=== PATIENT | female | born 1930 | race Caucasian/White ===

== ENCOUNTER 2017-09-07 12:09 | Inpatient (IN) ==
[2017-09-07] MEDS ORDERED: 0.9 % Sodium Chloride 500 ML IVC ONE (12:16)
--- NOTE | 2017-09-07 12:19 | Emergency Department Note ---
START Narrative - START START: I examined this patient and my medical decision-making was reviewed with the EYE SURGEON/PA/Advanced Practice Nurse/Resident Physician. I agree with the documented findings, disposition and treatment plan as described except to the extent set forth below. ED attending: Patient's emergency medicine resident Dr. Yehuda Elise. Please see copy of this note for H&P evaluation and management and ED disposition. We both had independent [id number] time in contact with this patient. Briefly: A 87-year-old female normally lives in [place] staying with family locally via EMS for increasing weakness and altered mental status over the past 24-48 hours. Physical examination shows the patient is a poor story but otherwise nonfocal cranial nerves appear to be intact there is no slurred speech dysphagia or dysphonia. Patient is afebrile with stable vital signs patient will get a workup for MENTAL STATUS. SCREENING LABS EKG NONCONTRAST HEAD CT AND CHEST X- RAY AND URINALYSIS. ADMISSION ANTICIPATED. DISPOSITION PENDING.
--- NOTE | 2017-09-07 12:32 | Emergency Department Note ---
Disposition Clinical Impression: Multifocal pneumonia, Elevated troponin, Dysarthria Disposition: Admitted As Inpatient Condition: Serious Weakness HPI - General Chief complaint: ED Weakness Stated complaint: weakness Time Seen by Provider: 09/07/17 12:15 Source: patient, EMS Mode of arrival: private vehicle Limitations: no limitations Nursing Notes Reviewed: Yes Vital Signs Reviewed: Yes - History of Present Illness HPI Narrative: 87-year-old female history of hypertension, hyperlipidemia, status post CABG who presents to the ER via EMS due to weakness. Reports that she has not felt well for several days. She was seen here on given IV fluids, labs and discharged home. Her current complaint is that she has had a cough for a few days and has been too weak to walk. Family at bedside reports that she has been sick since the of this month. They report generalized weakness with difficulty ambulating at home. They do state that overnight that she had unclosed herself and was speaking but not making sense. She woke up this morning mentating more appropriately. She denies any chest pain or shortness of breath. No numbness tingling or paresthesias. Pt Subjective Complaint: generalized weakness/fatigue Onset (ago): day(s) Duration: constant Location: generalized Migration: none Pain Severity: none Pain Scale: 0 Improves with: none Worsens with: none Associated symptoms: Reports: denies other symptoms - Related Data Home Medications Medication Instructions Recorded Confirmed Levothyroxine Sodium [Levoxyl] 50 mcg PO DAILY 09/07/17 09/07/17 Metoprolol XL (24 HR) Succ [Toprol 100 mg PO DAILY 09/07/17 09/07/17 XL] NIFEdipine [Nifedipine ER] 30 mg PO DAILY 09/07/17 09/07/17 Simvastatin [Zocor] 20 mg PO DAILY 09/07/17 09/07/17 Venlafaxine XR (24 HR) [Effexor Xr] 37.5 mg PO DAILY 09/07/17 09/07/17 Allergies Allergy/AdvReac Type Severity Reaction Status Date / Time No Known Allergies Allergy Verified 09/04/17 10:04 All systems ED: reviewed and negative except as stated. Constitutional: Denies: fever Cardiovascular: Denies: chest pain Respiratory: Reports: cough. Denies: dyspnea Gastrointestinal: Denies: abdominal pain, nausea, vomiting, diarrhea Neurological: Reports: weakness. Denies: headache, numbness, paresthesias Past Medical History - Past Medical History Attestation: Yes The following information was validated with the patient. Source: patient, obtained from family Medical history: Reports: coronary artery disease, hyperlipidemia Psychiatric history: Reports: no psych history - Social History Smoking Status: Never smoker Alcohol use: Reports: none Drug use: Reports: none Physical Exam - General Limitations: no limitations General appearance: alert, in no apparent distress - Head Head exam: atraumatic, normocephalic, normal inspection - Eye Eye exam: Present: normal appearance, PERRL, EOMI - ENT ENT exam: normal exam - Neck Neck exam: Present: normal inspection, full ROM - Chest Chest inspection: Present: normal inspection, symmetric chest wall rise - Respiratory Respiratory exam: Present: normal lung sounds bilaterally - Cardiovascular Cardiovascular exam: Present: regular rate, normal rhythm, normal heart sounds - Abdominal Exam Abdominal exam: Present: soft, Non-Tender. Absent: tenderness - Extremities Exam Extremities exam: Present: normal inspection, full ROM - Expanded Upper Extremity Exam Shoulder exam: Present: normal inspection, full ROM Arm exam: Present: normal inspection, full ROM Elbow exam: Present: normal inspection, full ROM Forearm/Wrist exam: Present: normal inspection, full ROM Hand exam: Present: normal inspection, full ROM Vascular exam: Normal: radial pulse - Expanded Lower Extremity Exam Hip/Pelvis exam: Present: normal inspection, full ROM Upper leg exam: Present: normal inspection, full ROM Knee exam: Present: normal inspection, full ROM Lower leg exam: Present: normal inspection, full ROM Ankle exam: Present: normal inspection, full ROM Foot/toe exam: Present: normal inspection, full ROM Neurovascular/Tendon exam: Absent: motor deficit, sensory deficit - Neurological Exam Neurological exam: Present: alert, oriented X3, CN II-XII intact. Absent: motor sensory deficit - Expanded Neurological Exam Speech: Present: fluid speech Cranial nerves: EOM function (II, III, IV, ): Normal, facial sensation (V): Normal, spinal accessory function (XI): Normal, tongue deviation (XII): Normal Motor strength - LUE: 4/5 Motor strength - RUE: 4/5 Motor strength - LLE: 4/5 Motor strength - RLE: 4/5 Sensory exam upper extremity: light touch: Normal Sensory exam lower extremity: light touch: Normal Coma Scale Eye Opening: Spontaneous Coma Scale Motor Response: Obeys Commands Coma Scale Verbal Response: Oriented Coma Scale Total: 15 - Psychiatric Psychiatric exam: Present: normal affect - Skin Skin exam: Present: warm, dry, intact Course Course Narrative: Patient seen and examined. Nonfocal exam here. We will obtain a CT scan of the head as well as EKG, chest x-ray and labs including troponin and urinalysis. 500 mL bolus ordered. - Reevaluation(s) Reevaluation #1: Patient reevaluated due to concern for speech difficulties. Upon reevaluation she is exhibiting some expressive aphasia and dysarthria. STEMI called at 12:26 due to elevations in leads 3 and aVF. We will discuss with interventionalists - Consultations Consultation #1: I spoke with Dr. Hemphill, the continuous miner operator helper interventionalist. Discussed the patient's history and exam and EKG. He reports he will be down to see the patient. Time: 12:30 Consultation #2: I spoke again with the dewaxer after communication with cardiology who interpreted her echo. Recommends to heparinize but does not plan on emergent catheterization at this time. Vital Signs Temperature 98 F 09/07/17 12:10 Pulse Rate 90 09/07/17 12:10 Respiratory Rate 22 09/07/17 12:10 Blood Pressure 135/80 09/07/17 12:10 O2 Sat by Pulse Oximetry 96 09/07/17 12:10 Temperature 98 F 09/07/17 12:10 Pulse Rate 90 09/07/17 14:55 Respiratory Rate 20 09/07/17 15:51 Blood Pressure 154/78 09/07/17 15:51 O2 Sat by Pulse Oximetry 98 09/07/17 14:55 Oxygen Delivery Oxygen Delivery Nasal Cannula Weakness - [facility] Narrative Medical decision making narrative: 87-year-old female presents to the ER due to generalized weakness for one week in duration. Upon arrival patient had nonfocal neurologic exam. During her ED stay she was noted to be dysarthric at times. Her EKG demonstrated ST elevations in leads 3 and aVF. Alert was called and interventional cardiology evaluated the patient at bedside in the emergency department. Patient was chest pain-free during all of this. No prior EKGs for comparison. Stat echocardiogram was ordered at the request of the busgirl. Patient's troponin noted to be 5. Chest x-ray demonstrates likely bilateral pneumonia. Patient given Rocephin and Zithromax. Patient admitted to the hospitalist service. - Lab Data Lab results reviewed: Yes I reviewed the patient's lab results. Result diagrams: 09/07/17 12:36 09/07/17 12:36 Lab Results 09/07/17 09/07/17 09/07/17 Range/Units 12:34 12:36 12:36 WBC 7.3 (4.3-11.1) K/mcL RBC 4.53 (3.82-4.97) M/mcL Hgb 12.7 (11.5-15.4) g/dL Hct 39.0 (35.3-44.9) % MCV 86.1 (83.0-100.0) fL MCH 28.0 (28.0-33.3) pg MCHC 32.6 (31.6-35.5) g/dL RDW 13.6 (11.5-14.5) % Plt Count 223 (140-400) K/mcL MPV 10.5 (9.4-12.4) fL Immature Gran % 0.7 (0-4) % Seg Neutrophils % 71.8 % Lymphocytes % 18.1 % Monocytes % 9.4 % Eosinophils % 0.0 % Basophils % 0.0 % Neutrophils # 5.3 (1.6-8.9) K/mcL Lymphocytes # 1.3 (0.6-4.6) K/mcL Monocytes # 0.7 (0.0-1.3) K/mcL Eosinophils # 0.0 (0.0-0.6) K/mcL Basophils # 0.0 (0.0-0.2) K/mcL PT 14.8 H (9.4-12.1) Seconds INR 1.4 APTT 31.7 (26.0-36.0) Seconds Sodium 143 (136-145) mEq/L Potassium 3.3 L (3.5-5.1) mEq/L Chloride 107 (98-107) mEq/L Carbon Dioxide 28 (23-29) mEq/L BUN 12 (8-23) mg/dL Creatinine 0.53 L (0.60-1.20) mg/dL Est GFR ( Amer) > 60 (> 60) Est GFR (Non-Af Amer) > 60 (> 60) BUN/Creatinine Ratio 23 (6-26) Glucose 118 H (70-105) mg/dL Calculated Osmolality 297 (280-300) Calcium 8.8 (8.6-10.3) mg/dL Total Bilirubin 1.2 H (0.3-1.0) mg/dL AST 52 H (13-39) Units/L ALT 25 (7-52) Units/L Alkaline Phosphatase 112 H (34-104) Units/L Troponin I (< 0.04) ng/mL Serum Total Protein 5.5 L (6.4-8.9) g/dL Albumin 3.4 L (3.5-5.7) g/dL Globulin 2.1 L (2.4-3.5) g/dL Albumin/Globulin Ratio 1.6 (1.1-2.2) TSH 3.098 (0.340-5.600) mcIU/mL Urine Color (Yellow) Urine Clarity (Clear) Urine pH (5.0-8.0) pH Units Ur Specific [place] (1.010-1.025) Urine Protein (Neg-Trace) mg/dL Urine Glucose (UA) (Normal) mg/dL Urine Ketones (Negative) mg/dL Urine Blood (Negative) Urine Nitrite (Negative) Urine Bilirubin (Negative) Urine Urobilinogen (Normal) mg/dL Ur Leukocyte Esterase (Negative) Urine Microscopic RBC (0-3) per hpf Urine Microscopic WBC (0-3) per hpf Ur Squamous Epith Cells (None-Few) per lpf Urine Bacteria (None-Few) per hpf Hyaline Casts (None-Few) per lpf Ur Culture Indicated? (NO) 09/07/17 09/07/17 Range/Units 12:36 15:02 WBC (4.3-11.1) K/mcL RBC (3.82-4.97) M/mcL Hgb (11.5-15.4) g/dL Hct (35.3-44.9) % MCV (83.0-100.0) fL MCH (28.0-33.3) pg MCHC (31.6-35.5) g/dL RDW (11.5-14.5) % Plt Count (140-400) K/mcL MPV (9.4-12.4) fL Immature Gran % (0-4) % Seg Neutrophils % % Lymphocytes % % Monocytes % % Eosinophils % % Basophils % % Neutrophils # (1.6-8.9) K/mcL Lymphocytes # (0.6-4.6) K/mcL Monocytes # (0.0-1.3) K/mcL Eosinophils # (0.0-0.6) K/mcL Basophils # (0.0-0.2) K/mcL PT (9.4-12.1) Seconds INR APTT (26.0-36.0) Seconds Sodium (136-145) mEq/L Potassium (3.5-5.1) mEq/L Chloride (98-107) mEq/L Carbon Dioxide (23-29) mEq/L BUN (8-23) mg/dL Creatinine (0.60-1.20) mg/dL Est GFR ( Amer) (> 60) Est GFR (Non-Af Amer) (> 60) BUN/Creatinine Ratio (6-26) Glucose (70-105) mg/dL Calculated Osmolality (280-300) Calcium (8.6-10.3) mg/dL Total Bilirubin (0.3-1.0) mg/dL AST (13-39) Units/L ALT (7-52) Units/L Alkaline Phosphatase (34-104) Units/L Troponin I 5.02 H* (< 0.04) ng/mL Serum Total Protein (6.4-8.9) g/dL Albumin (3.5-5.7) g/dL Globulin (2.4-3.5) g/dL Albumin/Globulin Ratio (1.1-2.2) TSH (0.340-5.600) mcIU/mL Urine Color Yellow (Yellow) Urine Clarity Clear (Clear) Urine pH 6.0 (5.0-8.0) pH Units Ur Specific [place] 1.012 (1.010-1.025) Urine Protein Negative (Neg-Trace) mg/dL Urine Glucose (UA) Normal (Normal) mg/dL Urine Ketones Trace H (Negative) mg/dL Urine Blood Trace H (Negative) Urine Nitrite Negative (Negative) Urine Bilirubin Negative (Negative) Urine Urobilinogen Normal (Normal) mg/dL Ur Leukocyte Esterase Negative (Negative) Urine Microscopic RBC 0-3 (0-3) per hpf Urine Microscopic WBC 0-3 (0-3) per hpf Ur Squamous Epith Cells Moderate H (None-Few) per lpf Urine Bacteria None Seen (None-Few) per hpf Hyaline Casts None Seen (None-Few) per lpf Ur Culture Indicated? NO (NO) - Radiology Data Radiology results reviewed: Yes I reviewed the patient's radiology results. Chest X-Ray 09/07/17 12:15 IMPRESSION: Worsened streaky airspace opacities to the lungs bilaterally, right more than left with lower lung zone predominance may reflect worsening atelectasis or multifocal infiltrates. Clinical correlation and continued follow-up recommended. D/ / 09/07/2017 12:42:47 Shoaib Rudd MD / [facility] Interpreting Provider: Shoaib Rudd MD Head CT 09/07/17 12:17 IMPRESSION: No acute intracranial abnormality. Age related changes including chronic small vessel ischemic disease and cerebral atrophy. D/ / 09/07/2017 13:40:41 Amirah Farooq MD / [facility] Interpreting Provider: Amirah Farooq MD - EKG Data EKG attestation: Yes I reviewed and interpreted this EKG. EKG results narrative: EKG demonstrates sinus rhythm with rate of 91 bpm. Normal axis. Normal intervals. Poor R-wave progression. There are ST elevations in leads 3 and aVF as well as ST depression in reciprocal changes in leads 1 and aVL. STEMI
[2017-09-07 12:51] LABS: Hemoglobin 12.7 g/dL (11.5-15.4); Immature Granulocytes % 0.7 % (0-4); Lymphocytes # 1.3 K/mcL (0.6-4.6); Lymphocytes % 18.1 %; Mean Corpuscular HGB Conc 32.6 g/dL (31.6-35.5); Mean Corpuscular Volume 86.1 fL (83.0-100.0); Mean Platelet Volume 10.5 fL (9.4-12.4); Monocytes # 0.7 K/mcL (0.0-1.3); Monocytes % 9.4 %; Neutrophils # 5.3 K/mcL (1.6-8.9); Platelet Count 223 K/mcL (140-400); Red Blood Count 4.53 M/mcL (3.82-4.97); Red Cell Distribution Width 13.6 % (11.5-14.5); Segmented Neutrophils % 71.8 %
[2017-09-07 12:58] LABS: INR 1.4; Prothrombin Time 14.8 Seconds (9.4-12.1)
[2017-09-07 13:02] LABS: Activated Partial Thrombo Time 31.7 Seconds (26.0-36.0)
[2017-09-07] MEDS ORDERED: *HR* Ticagrelor 90 MG TABLET PO ONE (13:02)
[2017-09-07] MEDS ORDERED: Aspirin 81 MG TAB.CHEW PO ONE (13:02)
[2017-09-07 13:03] LABS: Alanine Aminotransferase 25 Units/L (7-52); Albumin 3.4 g/dL (3.5-5.7); Albumin/Globulin Ratio 1.6 (1.1-2.2); Alkaline Phosphatase 112 Units/L (34-104); Aspartate Amino Transferase 52 Units/L (13-39); BUN/Creatinine Ratio 23 (6-26); Bilirubin,Total 1.2 mg/dL (0.3-1.0); Blood Urea Nitrogen 12 mg/dL (8-23); Calcium 8.8 mg/dL (8.6-10.3); Carbon Dioxide 28 mEq/L (23-29); Chloride 107 mEq/L (98-107); Globulin 2.1 g/dL (2.4-3.5); Glucose 118 mg/dL (70-105); Osmolality,Calculated 297 (280-300); Potassium 3.3 mEq/L (3.5-5.1); Sodium 143 mEq/L (136-145); Total Protein 5.5 g/dL (6.4-8.9); eGFR For African Americans > 60 (> 60); eGFR For Non-African Americans > 60 (> 60)
[2017-09-07 13:18] LABS: Thyroid Stimulating Hormone 3.098 mcIU/mL (0.340-5.600)
[2017-09-07] MEDS ORDERED: cefTRIAXone 1,000 MG in Water for inj. (sterile) 10 ML IVP ONE (13:57)
[2017-09-07] MEDS ORDERED: Azithromycin 500 MG in D5% in Water 250 ML IVPB ONE (13:57)
[2017-09-07] MEDS ORDERED: Ondansetron 4 MG/2 ML VIAL IVP ONE (14:33)
[2017-09-07] MEDS ORDERED: *HR* Heparin 5,000 UNIT/ML VIAL IVP ONE (14:58)
[2017-09-07] MEDS ORDERED: *HR* Heparin 5,000 UNIT/ML VIAL IVP PRN (14:58)
[2017-09-07] MEDS ORDERED: Heparin 25,000 UNIT/500 ML D5W 25,000 UNIT/500 ML BAG IVC SCH (15:00)
[2017-09-07 15:10] LABS: Bilirubin,Urine Negative (Negative); Blood,Urine Trace (Negative); Clarity,Urine Clear (Clear); Color,Urine Yellow (Yellow); Glucose,Urine (UA) Normal (Normal); Ketones,Urine Trace mg/dL (Negative); Leukocyte Esterase,Urine Negative (Negative); Nitrite,Urine Negative (Negative); Protein,Urine Negative (Neg-Trace); Specific Gravity,Urine 1.012 (1.010-1.025); Urobilinogen,Urine Normal (Normal)
[2017-09-07 15:12] LABS: Bacteria,Urine None Seen per hpf (None-Few); Hyaline Casts,Urine None Seen per lpf (None-Few); RBC,Urine 0-3 per hpf (0-3); Squamous Epithelial Cell,Urine Moderate per lpf (None-Few); WBC,Urine 0-3 per hpf (0-3)
[2017-09-07] MEDS ORDERED: *HR* Heparin 10,000 UNIT/10 ML VIAL ONE (15:26)
[2017-09-07] MEDS ORDERED: 0.9 % Sodium Chloride 1,000 ML ONE ×2 (15:26→16:04)
[2017-09-07] MEDS ORDERED: Nitroglycerin 1,000 MCG/10 ML VIAL IV ONE (15:27)
--- NOTE | 2017-09-07 15:34 | Pre-Sedation Evaluation ---
Pre-sedation evaluation - Pre-sedation checklist Date of procedure: 09/07/17 Procedure: [facility] Recent Vitals: Last Vital Signs Temp 98 F 09/07/17 12:10 Pulse 90 09/07/17 14:55 Resp 16 09/07/17 14:55 BP 129/84 09/07/17 14:55 Pulse Ox 98 09/07/17 14:55 H&P (including ROS) documented in medical record: Yes Previous reaction to sedatives/anesthetics: No Dietary Status: NPO after Midnight Airway Assessment: Patient can open mouth completely, TMJ function normal ASA Classification *see protocol: CLASS II-Mild systemic disease Plan of Care: Pt appropriate candidate for procedure/moderate/conscious sedation , Risks/benefits of procedure/sedation discussed w/ patient/family
[2017-09-07] MEDS ORDERED: HEPARIN INARTERIAL ONE (15:45)
[2017-09-07] MEDS ORDERED: D5 INARTERIAL ONE (15:45)
[2017-09-07] MEDS ORDERED: WATER INARTERIAL ONE (15:45)
[2017-09-07] MEDS ORDERED: *HR* FentaNYL (PF) 100 MCG/2 ML VIAL ONE (16:03)
[2017-09-07] MEDS ORDERED: *HR* Midazolam HCl 2 MG/2 ML VIAL ONE (16:03)
[2017-09-07] MEDS ORDERED: Ondansetron 4 MG/2 ML VIAL IVP PRN (16:26)
--- NOTE | 2017-09-07 16:33 | Internal Med History&Physical ---
Date of Encounter: 09/07/17 Time of Encounter: 16:32 Assessment and Plan (1) STEMI (ST elevation myocardial infarction) Current visit: Yes Status: Acute - troponin elevated, EKG inferior leads ST-T elevation. - Received Plavix and heparin gtt. - emergent cardiac cath. - cardiology following. - medical team will continue manage CV risk factors including HTN, and HLP and other medical issues. Qualifiers: Involved coronary artery: right coronary artery Qualified Code(s): I21.11 - ST elevation (STEMI) myocardial infarction involving right coronary artery (2) Pneumonia Current visit: Yes Status: Acute - CXR revealed bilateral PNA. - continue current abx with Rocephin and Zithromax. - Pending blood and sputum cx. Qualifiers: Pneumonia type: due to unspecified organism Laterality: bilateral Lung location: unspecified part of lung Qualified Code(s): J18.9 - Pneumonia, unspecified organism (3) Hypothyroidism Current visit: Yes Status: Chronic - will repeat TSH and continue home meds. Qualifiers: Hypothyroidism type: unspecified Qualified Code(s): E03.9 - Hypothyroidism , unspecified (4) HTN (hypertension) Current visit: No Status: Chronic - stable and continue home meds. Qualifiers: Hypertension type: essential hypertension Qualified Code(s): I10 - Essential (primary) hypertension (5) Hyperlipidemia Current visit: No Status: Chronic - On low dose statins, will check lipid profile and may need to increase to high -strength regimen if indicated. Qualifiers: Hyperlipidemia type: pure hypercholesterolemia Qualified Code(s): E78.00 - Pure hypercholesterolemia, unspecified; E78.0 - Pure hypercholesterolemia Internal Medicine - H&P: HPI Admitted From: Emergency Dept Plans for Post Hospital Care: Home History of present illness: Ms. Hollins is a 87 year old female with history of hypertension, hyperlipidemia, status post CABG who presents to the ER via EMS due to weakness. Reports that she has not felt well for several days. She was seen here on given IV fluids, labs and discharged home. Her current complaint is that she has had a cough for a few days and has been too weak to walk. Family at bedside reports that she has been sick since the of this month. They report generalized weakness with difficulty ambulating at home. They do state that overnight that she had unclosed herself and was speaking but not making sense. She woke up this morning mentating more appropriately. She denies any chest pain or shortness of breath. No numbness tingling or paresthesias. At the ED, she was found to have elevated troponin, a subsequent EKG revealed ST -T elevation in the inferior leads, cardiology was consult immediately, and decision was made to perform an acute left side heart catheter. She already received Plavix by mouth and was on heparin drip. Cardiology will manage cardiac issues and the hospitalist group will manage her medical issues. Past Med Surg Social Fam HX - Past Medical History Medical history: coronary artery disease, hyperlipidemia Psychiatric history: no psych history - Social History Smoking Status: Never smoker Alcohol use: none Drug use: none Internal Medicine - H&P: Meds Levothyroxine Sodium [Levoxyl] 50 mcg PO DAILY 09/07/17 [History] Metoprolol XL (24 HR) Succ [Toprol XL] 100 mg PO DAILY 09/07/17 [History] NIFEdipine [Nifedipine ER] 30 mg PO DAILY 09/07/17 [History] Simvastatin [Zocor] 20 mg PO DAILY 09/07/17 [History] Venlafaxine XR (24 HR) [Effexor Xr] 37.5 mg PO DAILY 09/07/17 [History] 3 Allergy/AdvReac Type Severity Reaction Status Date / Time No Known Allergies Allergy Verified 09/04/17 10:04 All Systems PM: A 10-system review of systems was performed and is negative for pertinent findings except as documented above in the HPI. Review of systems: REVIEW OF SYSTEMS: CONSTITUTIONAL: No weight loss, fever, chills, weakness or fatigue. HEENT: Eyes: No visual loss, blurred vision, double vision or yellow sclerae. Ears, Nose, Throat: No hearing loss, sneezing, congestion, runny nose or sore throat. SKIN: No rash or itching. CARDIOVASCULAR: see HPI. RESPIRATORY: see HPI. GASTROINTESTINAL: No anorexia, nausea, vomiting or diarrhea. No abdominal pain or blood. GENITOURINARY: No dysuria, urgency, or frequency. NEUROLOGICAL: No headache, dizziness, syncope, paralysis, ataxia, numbness or tingling in the extremities. No change in bowel or bladder control. MUSCULOSKELETAL: No muscle, back pain, joint pain or stiffness. HEMATOLOGIC: No anemia, bleeding or bruising. LYMPHATICS: No enlarged nodes. No history of splenectomy. PSYCHIATRIC: No history of depression or anxiety. ENDOCRINOLOGIC: No reports of sweating, cold or heat intolerance. No polyuria or polydipsia. - Constitutional Vitals: Temp Pulse Resp BP Pulse Ox 98 F 90 20 154/78 98 09/07/17 12:10 09/07/17 14:55 09/07/17 15:51 09/07/17 15:51 09/07/17 14:55 Exam: PHYSICAL EXAMINATION: GENERAL APPEARANCE: The patient is alert, oriented and in no acute distress. HEENT: Head is normocephalic. The sinuses are nontender. Pupils are equal and reactive. The nares are patent. Oropharynx clear without lesions. NECK: Supple without lymphadenopathy. HEART: Regular rate and rhythm. LUNGS: No crackles or wheezes are heard. ABDOMEN: Soft, nontender, nondistended with good bowel sounds heard. Inguinal area is normal. EXTREMITIES: Without cyanosis, clubbing or edema. NEUROLOGICAL: Gross nonfocal. SKIN: Warm and dry without any rash. Internal Med - H&P Results - Labs CBC & Chem 7: 09/07/17 12:36 09/07/17 12:36
[2017-09-07] MEDS ORDERED: Potassium Chloride Elixir 20 MEQ/15 ML UDC PO ONE (16:41)
--- NOTE | 2017-09-07 17:33 | Event Note ---
Date of Encounter: 09/07/17 Time of Encounter: 17:30 - Cardiology Event Note Prelim LHC/PTCA Patent SVG to OM/diagonal Y graft that backfills the LAD SHIELDS occluded RCA heavily calcified with mid 90% stenosis sp PTCA with noncompliant to 20atm with incomplete (30%) inflation mid balloon. Residual 80% stenosis. 100% distal RCA with ipsilateral collaterals. Distal lesion is heavily calcified with small subbranch. Suspect subtotal chronic occlusion. Unable to pass OTW 1.2 balloon or Fielder/PT wire distally. Patient asymptomatic and EF 45% by echo. Patient stable. Concluded procedure.
--- NOTE | 2017-09-07 17:50 | Invasive Diagnostic Lab Proc ---
Name: Mary Anne Hollins Date of Study: 09/07/2017 Date: 1930 Ht: 61.0in Medical Record#: [id number] Age: 87 Wt: 99.21lb Gender: Female BSA: 1.4 Order #: [id number] BMI: 18.73 Physicians Procedure Physician: Jamey Hemphill MD, [facility] Referring MD: None Referring MD: Staff Name Position Time In ZavalaAiden RN Monitor 03:57 PM Amirah Giron RN Outside Barrel Lathe Operator 03:58 PM Bibi Borden RT (R) Scrub 03:59 PM Anita Ruby RN Outside Barrel Lathe Operator 05:08 PM Indications Indication Non-Stemi Procedures Performed Procedure CORONARY ART/GRFT ANGIO S&I INJECT SUPRVLVAORTAGRAM PRQ CARDIAC ANGIOPLAST 1 ART Pre-Procedure Checklist Informed consent is complete signed and on chart. H&P is on chart. ID band is on and ID verified with patient. Pt not NPO for procedure and MD aware. The procedure was described for the patient and questions were answered. Blood Pressure: 129/84 ECG is on chart. Rhythm: NSR Plan of Care Patient will tolerate the procedure without complications. Adequate level of comfort will be maintained. Hemodynamics will remain stable Patient will recover from procedure without complications. Respiratory function will be maintained. Cardiac rhythm will remain stable. Patient temperature will be maintained. Patient and/or family have verbalized understanding of the procedure. Patient Education Chief Complaint/Reason for Test: Cardiac Cath Developmental Category: Geriatric (65+ years) Developmentally Appropriate for Age: Yes Learning Barriers: None Education Needs: Procedure Education Method: Verbal Information Taught: Cardiac Cath Educational Evaluation: Able to repeat information Intravenous Access Time IV Size Location DC'd Fluid/Drip Rate Units RN 03:41 PM 20g 1 1/4" Patent On Arrival Lt Antecubital 0.9NaCl 25 ml/hr Amirah Giron RN 03:41 PM 20g 1 1/4" Patent On Arrival Rt Antecubital Amirah Giron RN Allergies No Known Allergies Vital Signs Time BP (mmHg) HR (bpm) O2 Sat. RR (bpm) LOC 03:42 PM 129 / 84 90 98 % 16 3 = Answers simple questions/follows commands 03:58 PM / % 3 = Answers simple questions/follows commands 03:58 PM / % 3 = Answers simple questions/follows commands 04:13 PM / % 3 = Answers simple questions/follows commands 04:28 PM / % 3 = Answers simple questions/follows commands 04:44 PM / % 3 = Answers simple questions/follows commands 04:59 PM / % 3 = Answers simple questions/follows commands 04:04 PM 136 / 91 105 100 % 16 04:09 PM 135 / 95 103 100 % 39 04:14 PM 127 / 84 98 100 % 32 04:19 PM 133 / 86 102 100 % 20 04:24 PM 122 / 75 90 99 % 24 04:29 PM 121 / 74 91 98 % 28 04:34 PM 120 / 75 91 99 % 35 04:39 PM 120 / 70 90 96 % 29 04:44 PM 111 / 64 87 96 % 29 04:49 PM 107 / 71 86 98 % 28 04:54 PM 114 / 65 87 99 % 23 04:59 PM 110 / 68 87 99 % 26 05:04 PM 113 / 67 89 98 % 18 05:09 PM 106 / 69 90 100 % 25 05:14 PM 118 / 77 92 100 % 30 05:19 PM 116 / 74 91 100 % 15 05:25 PM 117 / 77 91 100 % 18 05:14 PM / % 3 = Answers simple questions/follows commands Procedural Medications Time Medication Dose Units Method Given By 04:18 PM Versed 1 mg Intravenous Amirah Giron RN 04:18 PM Fentanyl 25 mcg Intravenous Amirah Giron RN 04:19 PM Lidocaine 2% 20 ml Subcutaneous Jamey Hemphill MD, FACC 04:40 PM Heparin 4000 units Intravenous Amirah Giron RN ASA Classification: CLASS II- Mild systemic disease (i.e. well-controlled diabetes, hypertension, asthma, cigarette smoking) Elan Score Preprocedure Postprocedure Activity 2- Moves 4 extremities sustained head lift Activity 2- Moves 4 extremities sustained head lift Circulation 2- SBP +/= 20 points of pre-anesthetic level Circulation 2- SBP +/= 20 points of pre-anesthetic level Consciousness 2- Awake and alert oriented x 3 Consciousness 2- Awake and alert oriented x 3 O2 Saturation 2- Able to maintain O2 satruation of 92% on room air O2 Saturation 2- Able to maintain O2 satruation of 92% on room air Respiratory 2- Able to deep breathe and cough well Respiratory 2- Able to deep breathe and cough well Total Score 10 Total Score 10 Contrast Agent: Isovue Diagnostic Contrast: 151 ml Total Contrast: 151 ml Fluoro Dose: 1236 mGy Activated Clotting Time Time Seconds to Clot 05:19 PM 280 Procedure Log Time Note Enter By 03:37 PM CathStat 03:57 PM Pt arrived to [facility] at 15:57, pt pleasantly confused upon arrival to [facility], daughter signed consent for patient csmith 03:57 PM Aiden Zavala RN Position: Monitor Time in: 15:57 csmith 03:57 PM Patient charges- Angio tray pack, Navilyst 3mm J, Pulse Oximetry and ACIST tubing and transducer csmith 03:58 PM Sign in performed according to hospital policy. csmith 03:58 PM Meet and greet completed csmith 03:58 PM Procedure start 15:58 csmith 03:58 PM Time: 15:58 Patient comfortable and pain free: Yes csmith 03:58 PM Time: 15:58LOC: 5 = Fully awake and oriented or at pre-proc level csmith 03:58 PM Case Start 03:59 PM Amirah Giron RN Position: Outside Barrel Lathe Operator Time in: 15:58 csmith 03:59 PM Bibi Borden RT (R) Position: Scrub Time in: 15:59 csmith 04:00 PM ASA Class CLASS II- Mild systemic disease (i.e. well-controlled diabetes, hypertension, asthma, cigarette smoking) csmith 04:00 PM Hair removed from procedure site in procedure lab using clippers. Bilateral groin prepped with Chloraprep by Esme Armstrong RT (R), safety strap applied then patient was draped. Skin intact. csmith 04:02 PM Vitals capture started with the following parameters, Patient=Adult, Interval=5 min, Initial Ziltsbhz=754 mmHg, Deflation Rate=5 mmHg, Cuff placed on Left Arm 04:03 PM Vitals capture started with the following parameters, Patient=Adult, Interval=5 min, Initial Tvkawaov=304 mmHg, Deflation Rate=5 mmHg, Cuff placed on Left Arm 04:[address]=016 bpm, ANOA=107/91 mmhg, SvX6=246.0 %, Resp=16 B/min 04:05 PM Recorded ECG: UD=980 Condition=Condition 1 04:09 PM QT=618 bpm, ADWE=435/95 mmhg, DkB1=730.0 %, Resp=39 B/min, Comment=ST 04:13 PM Time: 15:58LOC: 4 = Oriented but drowsy csmith 04:13 PM Time: 15:58 Patient comfortable and pain free: Yes csmith 04:14 PM HR=98 bpm, UHDP=530/84 mmhg, JoL8=607.0 %, Resp=32 B/min 04:16 PM Time out performed according to hospital policy csmith 04:18 PM Time: 16:18 Versed 1 mg Intravenous Given by Amirah Giron RN csmith 04:18 PM Time: 16:18 Fentanyl 25 mcg Intravenous Given by Amirah Giron RN csmith 04:19 PM AV=829 bpm, CNUH=684/86 mmhg, AlX9=235.0 %, Resp=20 B/min 04:19 PM Time: 16:19 20 ml Lidocaine 2% to right groin Subcutaneous Given by Jamey Hemphill MD, [facility] csmith 04:20 PM Access obtained by percutaneous puncture. 5Fr 10cm Terumo [place] sheath placed in right Femoral artery. [id number] csmith 04:21 PM 5Fr FR 4 catheter inserted over the wire [facility] 04:21 PM 0.035 145cm Navilyst 3mmJ wire [id number] csmith 04:21 PM Pressure channel 1 zeroed. 04:22 PM Recorded Pressure: Ao, HR=95, Condition=Condition 1 (Aorta) Ao 120/78/96 04:22 PM RCA angiography performed in multiple views. csmith 04:22 PM Lesion found in Mid RCA. Pre Stenosis: 95 Pre ELYSSA Flow: 2. csmith 04:23 PM Coronary Dominance: right csmith 04:23 PM Lesion found in Distal RCA. Pre Stenosis: 100 Pre ELYSSA Flow: 0: No Flow/No perfusion csmith 04:24 PM SVG to the 1st OM angio performed in multiple views. csmith 04:24 PM HR=90 bpm, MCBA=355/75 mmhg, SpO2=99.0 %, Resp=24 B/min 04:25 PM Catheter removed csmith 04:25 PM 5Fr IM catheter inserted over the wire [id number] csmith 04:27 PM Left FLORY to the LAD angio performed in TIERNEY. csmith 04:28 PM Catheter removed csmith 04:28 PM 5Fr FL 4 catheter inserted over the wire [facility] 04:28 PM Time: 16:13 Patient comfortable and pain free: Yes csmith 04:28 PM Time: 16:13LOC: 3 = Answers simple questions/follows commands csmith 04:29 PM HR=91 bpm, WBHB=359/74 mmhg, SpO2=98.0 %, Resp=28 B/min 04:29 PM LCA angiography performed in one view. csmith 04:30 PM Catheter removed csmith 04:31 PM Recorded Pressure: Ao, HR=92, Condition=Condition 1 (Aorta) Ao 124/66/90 04:31 PM Bolus angiogram of Aortic root complete: 10 ml/sec for a total of 25 mls csmith 04:32 PM Catheter removed csmith 04:33 PM 5Fr JL3.5 catheter inserted over the wire [id number] csmith 04:34 PM HR=91 bpm, NMYD=793/75 mmhg, SpO2=99.0 %, Resp=35 B/min 04:34 PM LCA angiography performed in multiple views. csmith 04:35 PM Lesion found in Mid LAD. Pre Stenosis: 100 Pre ELYSSA Flow: 0: No Flow/No perfusion csmith 04:35 PM Catheter removed csmith 04:35 PM 5Fr MPA catheter inserted over the wire [id number] csmith 04:37 PM Catheter removed csmith 04:38 PM Sheath exchanged for a 6 Fr 11 cm Cordis Flor sheath [id number] csmith 04:39 PM HR=90 bpm, CJRS=234/70 mmhg, SpO2=96.0 %, Resp=29 B/min 04:39 PM Inflation device was opened. csmith 04:40 PM Time: 16:40 Heparin 4000 units Intravenous Given by Amirah Giron RN csmith 04:40 PM 6Fr JR 4 Runway guide catheter was used to cannulate the PCI vessel successfully. reused? No csmith 04:42 PM .014 [place] 180cm guide wire across target lesion- successful. reused? No csmith 04:42 PM Bed requested, 2N 8 assigned csmith 04:43 PM Time: 16:28 Patient comfortable and pain free: Yes csmith 04:44 PM Time: 16:28LOC: 3 = Answers simple questions/follows commands csmith 04:44 PM HR=87 bpm, PATK=421/64 mmhg, SpO2=96.0 %, Resp=29 B/min 04:48 PM Guide wire removed intact. csmith 04:49 PM HR=86 bpm, ZZZE=052/71 mmhg, SpO2=98.0 %, Resp=28 B/min 04:51 PM .014 [place] XT 300cm guide wire across target lesion- successful. reused? No csmith 04:51 PM 1.2 mm x 15 mm Emerge overthewire balloon across target lesion- successful. reused? No csmith 04:54 PM HR=87 bpm, MZIQ=186/65 mmhg, SpO2=99.0 %, Resp=23 B/min 04:56 PM Balloon catheter removed intact. csmith 04:56 PM Guide catheter removed intact. csmith 04:56 PM Guide wire removed intact. csmith 04:58 PM 6Fr MPA Runway guide catheter was used to cannulate the PCI vessel successfully. reused? No csmith 04:58 PM 1.2*15 balloon and wire reinserted csmith 04:59 PM HR=87 bpm, AEAV=744/68 mmhg, SpO2=99.0 %, Resp=26 B/min 04:59 PM Time: 16:44LOC: 3 = Answers simple questions/follows commands csmith 04:59 PM Time: 16:43 Patient comfortable and pain free: Yes csmith 05:02 PM Guide wire removed intact. csmith 05:02 PM balloon catheter removed intact csmith 05:04 PM HR=89 bpm, MLMM=782/67 mmhg, SpO2=98.0 %, Resp=18 B/min 05:06 PM .014 PT Graphix 300cm guide wire across target lesion- successful. reused? No csmith 05:07 PM 1.2 * 15 balloon reinserted csmith 05:08 PM Anita Ruby RN Position: Outside Barrel Lathe Operator Time in: 17:08 to relieve Amirah Giron RN csmith 05:08 PM balloon and wire removed csmith 05:08 PM marvel 180cm wire reinserted csmith 05:09 PM HR=90 bpm, DPZT=926/69 mmhg, ZvU7=270.0 %, Resp=25 B/min 05:09 PM 2.25 mm x 12 mm Emerge Monorail balloon across target lesion- successful. reused? No csmith 05:11 PM Balloon inflated @ 14 kamari for 30 seconds csmith 05:11 PM Balloon catheter removed intact. csmith 05:13 PM 2.5 mm x 8mm NC Emerge balloon across target lesion- successful. reused? No csmith 05:14 PM HR=92 bpm, TXAN=747/77 mmhg, WqU9=547.0 %, Resp=30 B/min 05:14 PM Time: 16:59 Patient comfortable and pain free: Yes csmith 05:14 PM Time: 16:59LOC: 3 = Answers simple questions/follows commands csmith 05:15 PM Balloon inflated @ 12 kamari for 18 seconds csmith 05:15 PM Balloon inflated @ 20 kamari for 29 seconds csmith 05:17 PM Patient comfortable, no chest pain with balloon inflation csmith 05:18 PM wire, guide and balloon catheter removed intact csmith 05:19 PM HR=91 bpm, NESD=336/74 mmhg, UlM1=833.0 %, Resp=15 B/min 05:19 PM JR4 diagnostic catheter reinserted, single view of SVG to 1st OM/Diag taken csmith 05:19 PM At 17:19 the ACT was 280 seconds. csmith 05:21 PM catheter removed csmith 05:25 PM HR=91 bpm, AAFS=425/77 mmhg, TwB8=037.0 %, Resp=18 B/min 05:27 PM Lesion found in 1st Marginal. Pre Stenosis: 100 Pre ELYSSA Flow: 0: No Flow/No perfusion csmith 05:28 PM Procedure completed at 17:28 csmith 05:29 PM Sign out completed: Radiation Dose 1236 mGy Fluoro Time: 22.7 Isovue 370 - 200ml contrast 151 ml given by Jamey Hemphill MD, [facility]. Complications: NoneCardiac Rehab Consult needed: YesConfirmed administered medications: Yes csmith 05:29 PM Isovue 370 - 200ml,1 Bottle(s) used. csmith 05:29 PM Sheath left in place to be pulled on floor/holding areaV+Pad csmith 05:30 PM Time: 17:14LOC: 3 = Answers simple questions/follows commands csmith 05:30 PM Time: 17:14 Patient comfortable and pain free: Yes csmith 05:30 PM Estimated Blood Loss: less than 20cc csmith 05:30 PM Post ECG NSR csmith 05:30 PM Post Blood Pressure 117/77 csmith 05:30 PM Information taught PCI csmith 05:30 PM Education needs Responsibilities of Patient in Care csmith 05:30 PM Learning barriers :Cognitive and Sedated csmith 05:30 PM Education Methods Verbal csmith 05:30 PM Education evaluation Not ready to learn csmith 05:30 PM Site status No bleeding/hematoma - Rt Groin as reported by Bibi Borden RT (R) at 17:30 csmith 05:31 PM Plavix, Effient or Brilinta given No - given in ED csmith 05:31 PM Family placed in consult room. csmith 05:44 PM Report given to Jose GUIDRY Pt taken to 2N Room #8. 17:44 csmith Complications Complication None Hemodynamics Pressures Site Systolic/A Wave Diastolic/V Wave Mean AO 120 78 96 AO 124 66 90 Post Procedure Information Blood Pressure: 117/77 mmHg Rhythm: NSR Post procedural instructions were given Site Checks Time Location Status Staff Sheath In? Note 05:30 PM Rt Groin No bleeding/hematoma Bibi Borden RT (R) Pulses Updated by Aiden Zavala RN on 09/07/2017 5:44:30 PM electronically signed on 09/07/2017 5:45:17 PM with status of Final
[2017-09-07] MEDS ORDERED: *HR* Atropine Sulfate 1 MG/10 ML SYRINGE ONE (20:16)
[2017-09-07] MEDS: *HR* Ticagrelor 90 MG TABLET PO SCH (21:35)
--- NOTE | 2017-09-07 21:52 | Cardiology History & Physical ---
Date of Encounter: 09/08/17 Time of Encounter: 15:00 Assessment and Plan (1) NSTEMI (non-ST elevated myocardial infarction) Current Visit: Yes Status: Acute A/R/B of [facility] discussed with patient and family including 1% chance of MT// CVA/CABG/EMILIANO/bleeding. Patient and daughter are aware and wish to proceed. EF assessment has been completed. The assessment and plan as outlined above was discussed with the patient and/or family members who expressed understanding and agreement. All questions were answered. (2) Aortic stenosis, severe Current Visit: Yes Status: Acute Will need referral for TAVR. The assessment and plan as outlined above was discussed with the patient and/or family members who expressed understanding and agreement. All questions were answered. (3) Multifocal pneumonia Current Visit: Yes Status: Acute The assessment and plan as outlined above was discussed with the patient and/or family members who expressed understanding and agreement. All questions were answered. (4) Dysphasia Current Visit: Yes Status: Acute CT Head was negative for acute changes. The assessment and plan as outlined above was discussed with the patient and/or family members who expressed understanding and agreement. All questions were answered. (5) Pneumonia Current Visit: Yes Status: Acute Continue antibiotics per primary team. The assessment and plan as outlined above was discussed with the patient and/or family members who expressed understanding and agreement. All questions were answered. Qualifiers: Pneumonia type: due to unspecified organism Laterality: bilateral Lung location: unspecified part of lung Qualified Code(s): J18.9 - Pneumonia, unspecified organism History of Present Illness Chief complaint: fever, chills, fatigue HPI: Ms. Hollins is a 87 year old female with history of CAD sp CABG at [facility], [facility], presents with fatigue, malaise, intermittent difficulty speaking and garbled speech. She was recently in ED and was negative for influenza due to URI symptoms. She denies chest/jaw/arm discomfort. Secondary to garbled speech/difficulty speaking, CT head was obtained to assess for ICH or CVA. Subsequent CXR shows multifocal pneumonia. Troponin resulted positive at 5. Past Med Surg Social Fam HX - Past Medical History Medical history: coronary artery disease, hyperlipidemia Psychiatric history: no psych history - Social History Smoking Status: Never smoker Alcohol use: none Drug use: none Medications and Allergies Levothyroxine Sodium [Levoxyl] 50 mcg PO DAILY 09/07/17 [History] Metoprolol XL (24 HR) Succ [Toprol XL] 100 mg PO DAILY 09/07/17 [History] NIFEdipine [Nifedipine ER] 30 mg PO DAILY 09/07/17 [History] Simvastatin [Zocor] 20 mg PO DAILY 09/07/17 [History] Venlafaxine XR (24 HR) [Effexor Xr] 37.5 mg PO DAILY 09/07/17 [History] 3 Allergy/AdvReac Type Severity Reaction Status Date / Time No Known Allergies Allergy Verified 09/04/17 10:04 All Systems Review: A 10-system review of systems was performed and is negative for pertinent findings except as documented above in the HPI. - Constitutional Constitutional: chills, fever(s) - EENT Eyes: no blurred vision, no loss of vision Nose, mouth and throat: no bleeding gums, no epistaxis - Cardiovascular Cardiovascular: no chest pain at rest, no chest pain with exertion - Respiratory Respiratory: no hemoptysis, no wheezing - Gastrointestinal Gastrointestinal: no hematemesis, no hematochezia - Genitourinary Genitourinary: no dysuria, no hematuria - Musculoskeletal Musculoskeletal: no muscle cramps, no muscle weakness - Integumentary Integumentary: no rash, no unusual bruising - Neurological Neurological: abnormal speech, no focal weakness, no syncope - Psychiatric Psychiatric: no hallucinations, no panic attacks - Hematological/Lymphatic Hematologic/Lymphatic: no easy bleeding, no easy bruising Physical Examination Vital Signs, Last 4 Hours Temp Pulse Pulse Resp BP Pulse Ox 09/07/17 20:49 104 20 134/98 100 09/07/17 20:44 102 20 134/98 09/07/17 20:40 105 20 134/82 96 09/07/17 20:36 104 136/89 09/07/17 20:33 104 146/93 09/07/17 20:29 103 131/101 09/07/17 19:22 98.2 F 91 18 130/79 98 09/07/17 18:45 89 125/87 09/07/17 18:30 116/82 95 09/07/17 18:15 89 107/73 09/07/17 17:53 98.3 F 88 81 18 114/86 94 General: Conversant HEENT: Atraumatic Neck: No JVD Cardiac: Reg Rate and Rhythm, Other (3/6 systolic murmur) Lungs: Normal Breath Sounds Neuro: Alert and responsive Abdomen: Soft Skin: No rashes noted on visualized skin Musculoskeletal: No Chest Wall Tenderness Extremities: No Edema Results 09/08/17 05:25 09/08/17 05:25 - Imaging and Cardiology Echo: report reviewed, other (EF 45% severe aortic stenosis) - EKG Interpretation EKG results cardiology: personally reviewed, sinus rhythm (inferior changes concerning for current of injury)
[2017-09-08 05:58] LABS: Basophils % 0.1 %; Hemoglobin 11.5 g/dL (11.5-15.4); Immature Granulocytes % 1.1 % (0-4); Lymphocytes # 1.1 K/mcL (0.6-4.6); Lymphocytes % 13.1 %; Mean Corpuscular HGB Conc 31.9 g/dL (31.6-35.5); Mean Corpuscular Volume 87.8 fL (83.0-100.0); Mean Platelet Volume 10.8 fL (9.4-12.4); Monocytes % 11.3 %; Neutrophils # 6.4 K/mcL (1.6-8.9); Platelet Count 266 K/mcL (140-400); Red Cell Distribution Width 13.8 % (11.5-14.5); Segmented Neutrophils % 74.4 %
[2017-09-08 06:08] LABS: BUN/Creatinine Ratio 19 (6-26); Blood Urea Nitrogen 11 mg/dL (8-23); Calcium 8.6 mg/dL (8.6-10.3); Carbon Dioxide 21 mEq/L (23-29); Chloride 112 mEq/L (98-107); Glucose 146 mg/dL (70-105); Osmolality,Calculated 300 (280-300); Potassium 3.2 mEq/L (3.5-5.1); Sodium 144 mEq/L (136-145); eGFR For African Americans > 60 (> 60); eGFR For Non-African Americans > 60 (> 60)
--- NOTE | 2017-09-08 06:43 | Electrocardiograph Report ---
[facility] Test Date: 2017-09-07 Pat Name: Mary Anne Hollins Department: 103 Room: 2N08 Gender: F Math Professor: : 1930 Requested By: Yehuda Elise Order Number: [id number] Reading MD: Noah Johnson MD Measurements Intervals [place]ar Rate: 91 P: -17 MN: 151 QRS: 12 QRSD: 114 T: -22 QT: 433 QTc: 481 Interpretive Statements SINUS RHYTHM INFERIOR MYOCARDIAL INFARCTION PROBABLY RECENT ACUTE [place] Electronically Signed On 09-08-2017 6:41:24 EST by Noah Johnson MD
[2017-09-08] MEDS: *HR* Heparin 5,000 UNIT/ML VIAL IVP PRN ×2 (08:42→15:53)
[2017-09-08] MEDS: *HR* Ticagrelor 90 MG TABLET PO SCH ×2 (08:43→21:18)
[2017-09-08] MEDS: NIFEdipine XL (24 HR) 30 MG TAB.ER.24 PO SCH (08:51)
--- NOTE | 2017-09-08 08:57 | Cardiology Progress Note ---
<Jhonatan Velazquez - Last Filed: 09/08/17 11:21> Date of Encounter: 09/08/17 Time of Encounter: 08:45 Assessment and Plan (1) STEMI (ST elevation myocardial infarction) Current Visit: Yes Status: Acute Presented with fatigue; laboratory examination revealed elevated troponin of 5.02; EKG demonstrated STEMI, inferior infarction Patient was taken for cardiac catheterization. Per cardiology note: Patent SVG to OM/diagonal Y graft that backfills the LAD SHIELDS occluded. RCA heavily calcified with mid 90% stenosis sp PTCA with noncompliant to 20atm with incomplete (30%) inflation mid balloon. Residual 80 % stenosis. 100% distal RCA with ipsilateral collaterals. Distal lesion is heavily calcified with small subbranch. Suspect subtotal chronic occlusion. Unable to pass OTW 1.2 balloon or Fielder/PT wire distally. Patient asymptomatic and EF 45% by echo. Patient tolerated procedure well. Plan: -Lipitor 80 mg PO HS -Metoprolol 100 mg PO daily -Nifedipine XL 30 mg PO daily -Brilinta 90 mg PO BID -Zocor 20 mg PO QPM -Currently on heparin drip -Cardiac Diet -Continuous cardiac monitoring Qualifiers: Qualified Code(s): I21.3 - ST elevation (STEMI) myocardial infarction of unspecified site (2) Aortic stenosis, severe Current Visit: Yes Status: Acute Patient has aortic stenosis on physical examination. -Possible referral for TAVR; procedure was explained to patient; will make a decision at a later time. -Condition stable to time. ECHO on 09/07/17 demonstrated the following: -LVEF 45%. -Mild reduction in LV systolic function with possible abnormal inferoseptal wall motion. -Moderate concentric left ventricular hypertrophy. -Diastolic dysfunction with elevated filling pressures. -Severely calcified and restricted aortic valve leaflets with severe aortic stenosis. JULIETA 0.6cm2 -Moderate mitral regurgitation. Discussion w patient/family: The assessment and plan as outlined above was discussed with the patient and/or family members who expressed understanding and agreement. All questions were answered. Thank you for involving us in the care of your patient. Please call with any questions. Subjective Interval history: Patient seen and examined at bedside this morning. Repors that she is feeling well today. No comlaints at this time. Objective Vital Signs, Last 4 Hours Temp Pulse Resp BP 09/08/17 08:35 97.8 F 103 14 104/70 12/29/17 05:00 111 126/76 General: Conversant, No Apparent Distress HEENT: Atraumatic, Normocephaly, Mucus Membranes Moist Neck: No JVD, Normal carotid pulses Cardiac: Reg Rate and Rhythm, Normal S1 and S2 Lungs: Normal Breath Sounds, No Wheeze, Rales, Rhonchi Neuro: Alert and responsive, No focal deficits noted Skin: No rashes noted on visualized skin Musculoskeletal: No Chest Wall Tenderness Extremities: No Clubbing, No Cyanosis, No Edema, Normal Pulses Results 09/08/17 10:19 09/08/17 05:25 Lab Results 09/08/17 09/08/17 09/08/17 05:25 05:25 05:25 WBC 8.6 Hgb 11.5 Hct 36.0 Plt Count 266 APTT 41.9 H Sodium 144 Potassium 3.2 L Chloride 112 H Carbon Dioxide 21 L BUN 11 Creatinine 0.57 L Glucose 146 H Calcium 8.6 Consult Discharge Plan - Plan Referrals: NONE,PCP [Primary Care Provider] - <Geo Tobias - Last Filed: 09/08/17 15:39> Date of Encounter: 09/08/17 Assessment and Plan Discussion w patient/family: The assessment and plan as outlined above was discussed with the patient and/or family members who expressed understanding and agreement. All questions were answered. Thank you for involving us in the care of your patient. Please call with any questions. Objective Vital Signs, Last 4 Hours Temp Pulse Resp BP Pulse Ox 09/08/17 11:30 97.9 F 98 14 94/61 96 Results 09/08/17 10:19 09/08/17 05:25 Lab Results 09/08/17 09/08/17 09/08/17 05:25 05:25 05:25 WBC 8.6 Hgb 11.5 Hct 36.0 Plt Count 266 APTT 41.9 H Sodium 144 Potassium 3.2 L Chloride 112 H Carbon Dioxide 21 L BUN 11 Creatinine 0.57 L Glucose 146 H Calcium 8.6 09/08/17 10:19 WBC Hgb 11.9 Hct 36.2 Plt Count APTT Sodium Potassium Chloride Carbon Dioxide BUN Creatinine Glucose Calcium - Attending Attestation I examined this patient and my medical decision-making was reviewed with the Resident Physician. I agree with the documented findings, disposition and treatment plan as described except to the extent set forth below. 1. Aortic stenosis: Critical with JULIETA .6 cm2, heavily calcified trileaflet valve. Long conversation with pt and family, risk vs. benefits TAVR compared to medical tx. She has had progressively worsening HORTON, now unable to walk 10 feet without having to stop due to shortness of breath. Daughter at bedside reports she noted [place] Anne slowing down and having to rest more around Thanksgiving , but did not become acutely short of breath until before [place]. Pt and family request proceed with TAVR evaluation, discussed transfer to [place], are willing to go to [facility] for further evaluation. They understand this is for evaluation, and that pneumonic process will have to clear before could proceed with TAVR, Discussed transfer with SOUND physician at [facility], have call out to structural heart team, (Dr. Deondre Gaytan) 2. CAD - severe triple vessel dx, unsuccessful PCI RCA, unable to dilate lesion in mid third, distal RCA, mid LAD, SHIELDS chronically occluded, SVG to OM1 and D1 patent. Continue medical tx.
[2017-09-08] MEDS ORDERED: Metoprolol XL (24 HR) Succ 50 MG TAB.ER.24H PO SCH ×2 (09:00→11:00)
[2017-09-08] MEDS ORDERED: Potassium Chloride Elixir 20 MEQ/15 ML UDC PO ONE ×2 (10:17→13:30)
[2017-09-08 10:27] LABS: Hematocrit 36.2 % (35.3-44.9); Hemoglobin 11.9 g/dL (11.5-15.4)
--- NOTE | 2017-09-08 10:46 | Internal Med Progress Note ---
<Sydney Dominguez - Last Filed: 09/08/17 13:21> Date of Encounter: 09/08/17 Time of Encounter: 10:44 - Assessment and plan (1) STEMI (ST elevation myocardial infarction) Current Visit: Yes Status: Acute Assessment and plan: [facility] 09/07 s/p PCI to midRCA currently on heparin gtt ASA and Brilinta; will need dual anticoagulation for 1 year Qualifiers: Involved coronary artery: right coronary artery Qualified Code(s): I21.11 - ST elevation (STEMI) myocardial infarction involving right coronary artery (2) Pneumonia Current Visit: Yes Status: Acute Assessment and plan: On Rocephin and azithromycin. Supplemental O2 as needed Qualifiers: Pneumonia type: due to unspecified organism Laterality: bilateral Lung location: unspecified part of lung Qualified Code(s): J18.9 - Pneumonia, unspecified organism (3) Hypokalemia Current Visit: Yes Status: Acute Assessment and plan: Replete Continue to monitor (4) Aortic stenosis, severe Current Visit: Yes Status: Acute Assessment and plan: Management by cardiology; possible referral for TAVR (5) CAD (coronary artery disease) Current Visit: Yes Status: Acute Assessment and plan: ASA 81 mg Lipior 80 mg Toprol XL 50 mg Nifedipine 30 mg Brilinta 90 mg BID echo 09/07: LVEF 45%. Mild reduction in LV systolic function with possible abnormal inferior septal wall motion. Moderate concentrate left ventricular hypertrophy. Diastolic dysfunction with elevated filling pressures. Normal right ventricular structure and function. Severely calcified and restricted aortic valve leaflets with severe aortic stenosis. JULIETA 0.6 cm2. Right mitral regurgitation. No pulmonary hypertension. Qualifiers: Coronary Disease-Associated Artery/Lesion type: unspecified vessel or lesion type [place] vs. transplanted heart: [place] heart Associated angina: without angina Qualified Code(s): I25.10 - Atherosclerotic heart disease of [place] coronary artery without angina pectoris (6) HTN (hypertension) Current Visit: No Status: Chronic Assessment and plan: Chronic, stable Continue metoprolol 50 mg, nifedipine 30 mg Qualifiers: Hypertension type: essential hypertension Qualified Code(s): I10 - Essential (primary) hypertension (7) Hyperlipidemia Current Visit: No Status: Chronic Assessment and plan: Simvastatin changed to Lipitor 80 mg due to recent STEMI with PCI Qualifiers: Hyperlipidemia type: pure hypercholesterolemia Qualified Code(s): E78.00 - Pure hypercholesterolemia, unspecified; E78.0 - Pure hypercholesterolemia (8) Hypothyroidism Current Visit: Yes Status: Chronic Assessment and plan: Chronic, stable Continue home medication levothyroxine 25 g Qualifiers: Hypothyroidism type: unspecified Qualified Code(s): E03.9 - Hypothyroidism , unspecified - Subjective Interval history: Patient lying in bed. She states that she felt weak after trying to eat breakfast. She did not have an appetite. She denies shortness of breath although she is using 2 L supplemental oxygen via nasal cannula and does not use oxygen at home. - Constitutional Vitals: Temp Pulse Resp BP Pulse Ox 97.8 F 103 14 104/70 95 09/08/17 08:35 09/08/17 08:35 09/08/17 08:35 09/08/17 08:35 09/08/17 03:16 General appearance: Present: A&O X 3, answers questions appropriately - Head Head exam: Present: atraumatic, normocephalic - Eye Eye exam: Present: PERRL, conjuntiva pink, sclera anicteric Pupils: Present: PERRL - Neck Neck exam general surgery: Present: supple, trachea midline - Respiratory Respiratory exam: Present: CTAB. Absent: accessory muscle use, rales, rhonchi, wheezes - Cardiovascular Cardiovascular exam: Present: RRR, +S1, +S2. Absent: diastolic murmur, gallop, rubs, systolic murmur - GI/Abdominal GI/Abdominal exam: Present: normal bowel sounds, soft, no peritoneal signs. Absent: distended, tenderness - Extremities Exam Extremities exam: Present: warm. Absent: pedal edema, tenderness Additional comments: Posterior tibial pulses palpable and symmetric - Neurological Exam Neurological exam: Present: CN II-XII intact, oriented X3, no focal deficits. Absent: pronater drift, facial droop, speech deficit - Skin Skin exam: Present: dry, intact Internal Medicine: Result - Labs CBC & Chem 7: 09/08/17 10:19 09/08/17 05:25 Labs: Short CBC 09/08/17 09/08/17 Range/Units 05:25 10:19 WBC 8.6 (4.3-11.1) K/mcL Hgb 11.5 11.9 (11.5-15.4) g/dL Hct 36.0 36.2 (35.3-44.9) % Plt Count 266 (140-400) K/mcL Neutrophils # 6.4 (1.6-8.9) K/mcL [facility] 09/08/17 05:25 Sodium 144 Potassium 3.2 L Chloride 112 H Carbon Dioxide 21 L BUN 11 Creatinine 0.57 L Glucose 146 H Calcium 8.6 - ABG Interpretation ABG results: PT/INR, D-dimer PT 14.8 Seconds (9.4-12.1) H 09/07/17 12:34 - Impressions Impressions Chest X-Ray 09/08/17 08:54 IMPRESSION: Focal left lower lobe airspace consolidation worsened since prior examination suggesting pneumonia. Recommend follow-up to resolution. D/ / Humberto Schwartz MD / Humberto Schwartz MD Interpreting Provider: Humberto Shcwartz MD Consult Discharge Plan - Plan Referrals: NONE,PCP [Primary Care Provider] - <Alvin Castillo - Last Filed: 09/08/17 18:14> Date of Encounter: 09/08/17 - Constitutional Vitals: Temp Pulse Resp BP Pulse Ox 97.7 F 98 14 98/62 98 09/08/17 16:40 09/08/17 16:40 09/08/17 16:40 09/08/17 16:40 09/08/17 16:40 Internal Medicine: Result - Labs CBC & Chem 7: 09/08/17 10:19 09/08/17 05:25 Labs: Short CBC 09/08/17 09/08/17 Range/Units 05:25 10:19 WBC 8.6 (4.3-11.1) K/mcL Hgb 11.5 11.9 (11.5-15.4) g/dL Hct 36.0 36.2 (35.3-44.9) % Plt Count 266 (140-400) K/mcL Neutrophils # 6.4 (1.6-8.9) K/mcL [facility] 09/08/17 05:25 Sodium 144 Potassium 3.2 L Chloride 112 H Carbon Dioxide 21 L BUN 11 Creatinine 0.57 L Glucose 146 H Calcium 8.6 - ABG Interpretation ABG results: PT/INR, D-dimer PT 14.8 Seconds (9.4-12.1) H 09/07/17 12:34 - Impressions Impressions Chest X-Ray 09/08/17 08:54 IMPRESSION: Focal left lower lobe airspace consolidation worsened since prior examination suggesting pneumonia. Recommend follow-up to resolution. D/ / Humberto Schwartz MD / Humberto Schwartz MD Interpreting Provider: Humberto Schwartz MD - Attending Attestation I examined this patient and my medical decision-making was reviewed with the Resident Physician on 09/08/17. I agree with the documented findings, disposition and treatment plan as described except to the extent set forth below. Please see discharge summary of this date.
[2017-09-08] MEDS ORDERED: Azithromycin 500 MG in D5% in Water 250 ML IVPB SCH (14:00)
--- NOTE | 2017-09-08 15:59 | Event Note ---
<Sydney Dominguez - Last Filed: 09/08/17 15:57> Date of Encounter: 09/08/17 Time of Encounter: 15:57 Called to patient's room by nurse. "Family states patient started speech is getting worse, with neuro exam left hand grasp is weaker and there is left leg drift." On my exam, patient had intermittent slurred speech. She had no arm or leg drift. Her motor strength was 5 out of 5 upper and lower extremities bilaterally. She did have a minor left-sided facial droop that resolved while I was in the room. MRI head will be ordered for dysarthria, left-sided weakness. <Alvin Castillo - Last Filed: 09/08/17 18:12> Date of Encounter: 09/08/17 Agree with above plan. Pt resolved at this time. To be transferred to [place] per cardiology service.
[2017-09-08] MEDS ORDERED: *HR* LORazepam 2 MG/ML VIAL IVP ONE (16:26)
[2017-09-08] MEDS: cefTRIAXone 1,000 MG in Water for inj. (sterile) 10 ML IVP SCH (18:03)
--- NOTE | 2017-09-08 18:18 | Discharge Summary ---
Date of Encounter: 09/08/17 Time of Encounter: 18:15 - Discharge Diagnosis (1) STEMI (ST elevation myocardial infarction) Priority: Primary Status: Acute Qualifiers: Involved coronary artery: right coronary artery Qualified Code(s): I21.11 - ST elevation (STEMI) myocardial infarction involving right coronary artery (2) Aortic stenosis, severe Priority: Primary Status: Acute (3) CAD (coronary artery disease) Priority: Secondary Status: Chronic Qualifiers: Coronary Disease-Associated Artery/Lesion type: three affiliated artery [place] vs. transplanted heart: [place] heart Associated angina: without angina Qualified Code(s): I25.10 - Atherosclerotic heart disease of [place] coronary artery without angina pectoris (4) Multifocal pneumonia Priority: Secondary Status: Acute (5) Dehydration Priority: Secondary Status: Acute (6) HTN (hypertension) Priority: Secondary Status: Chronic Qualifiers: Hypertension type: essential hypertension Qualified Code(s): I10 - Essential (primary) hypertension (7) Dysarthria Priority: Secondary Status: Chronic - Discharge Medications Home Medications: Levothyroxine Sodium [Levoxyl] 25 mcg PO DAILY 09/07/17 [History] Metoprolol XL (24 HR) Succ [Toprol Xl] 50 mg PO DAILY 09/07/17 [History] NIFEdipine [Nifedipine ER] 30 mg PO DAILY 09/07/17 [History] Venlafaxine XR (24 HR) [Effexor Xr] 37.5 mg PO DAILY 09/07/17 [History] Acetaminophen [Tylenol] 500 mg PO Q6HR PRN tablet 09/08/17 [Rx] Aspirin [Lo-Dose Aspirin EC] 81 mg PO DAILY 09/08/17 [History] Atorvastatin [Lipitor] 80 mg PO HS tablet 09/08/17 [Rx] Heparin 1,400 unit IVP Q6H PRN vial 09/08/17 [Rx] Heparin 2,700 unit IVP Q6HR PRN vial 09/08/17 [Rx] Ondansetron [Zofran] 4 mg IVP Q8HR PRN vial 09/08/17 [Rx] Ticagrelor [Brilinta] 90 mg PO BID tablet 09/08/17 [Rx] Allergies/Adverse Reactions: 3 Allergy/AdvReac Type Severity Reaction Status Date / Time No Known Allergies Allergy Verified 09/04/17 10:04 Procedures/tests Complete & Pending: Procedures Performed prior 72 hours Category Date Time Status MR head/brain wo con [MR] Stat MRI 09/08/17 15:55 Ordered Date of admission: 09/07/17 16:45 Primary care physician: PCP NONE Consults: 09/07/17 18:04 Consult to Pastoral Services [CONS] Routine Comment: Consult to Cigar Inspector [CONS] Routine Reason for SW Consult: discharge planning. 09/08/17 13:19 Consult to Occupational Therapy [CONS] Routine Comment: Evaluate, develop and implement POC Reason for Consult: weakness; discharge planning Consult to Physical Therapy [CONS] Routine Comment: Evaluate, develop and implement POC Reason for Consult: weakness; discharge planning Discharging clinician: Alvin Castillo Anticipated date of discharge: 09/08/17 - Patient Status Disposition: Transfer Short-Term Hosp Condition: Fair Functional capacity at discharge: independent ambulation Overall status at discharge: patient is progressing back to baseline - Discharge Instructions Follow Up With: NONE,PCP [Primary Care Provider] - - Diet and Activity Activity: increase activity as tolerated Diet: low fat, low cholesterol, low salt diet Hospital course: Ms. Hollins is a 87 year old female presented to ED with weakness. She was found to have elevated troponin and EKG showing STEMI. She was taken directly to laboratory tester. Ms Hollins was taken to laboratory tester. She had PTCA with incomplete inflation of balloon. She was also found to have severe aortic stenosis. She was continued on heparin drip. Due to severe aortic stenosis she was referred for TAVR. She is to be transferred to [place]. Of note she had episodes of slurred speech and L side weakness. MRI ordered. She also is noted to have bilateral pneumonia and is on IV abx. - Time Spent with Patient Total time spent providing and/or coordinating discharge services: - Constitutional Vitals: Temp Pulse Resp BP Pulse Ox 97.7 F 98 14 98/62 98 09/08/17 16:40 09/08/17 16:40 09/08/17 16:40 09/08/17 16:40 09/08/17 16:40 General appearance: Present: A&O X 3, answers questions appropriately - Head Head exam: Present: normocephalic - Eye Eye exam: Present: EOMI, conjuntiva pink - ENT ENT exam: Present: mucous membranes moist - Respiratory Respiratory exam: Present: decreased breath sounds. Absent: rales, rhonchi - Cardiovascular Cardiovascular exam: Present: RRR, systolic murmur - GI/Abdominal GI/Abdominal exam: Present: soft. Absent: tenderness - Extremities Exam Extremities exam: Present: warm. Absent: tenderness - Neurological Exam Neurological exam: Present: alert, oriented X3. Absent: facial droop
--- NOTE | 2017-09-08 19:22 | Electrocardiograph Report ---
[address] [address] Test Date: 2017-09-08 Pat Name: Mary Anne Hollins Department: 110 Room: 2N2 Gender: F Key Account Executive: VLADIMIR : 1930 Requested By: Carlos Snyder Order Number: [id number] Reading MD: Jamey Hemphill MD Measurements Intervals [place] Rate: 113 P: -15 FL: 128 QRS: 65 QRSD: 100 T: -29 QT: 360 QTc: 427 Interpretive Statements SINUS TACHYCARDIA Electronically Signed On 09-08-2017 19:21:17 EST by Jamey Hemphill MD
[2017-09-08] MEDS: Venlafaxine XR (24 HR) 37.5 MG CAP.ER.24H PO SCH (20:36)
[2017-09-09 02:26] LABS: BUN/Creatinine Ratio 22 (6-26); Blood Urea Nitrogen 13 mg/dL (8-23); Calcium 8.5 mg/dL (8.6-10.3); Carbon Dioxide 26 mEq/L (23-29); Chloride 110 mEq/L (98-107); Glucose 143 mg/dL (70-105); Osmolality,Calculated 299 (280-300); Potassium 3.3 mEq/L (3.5-5.1); Sodium 143 mEq/L (136-145); eGFR For African Americans > 60 (> 60); eGFR For Non-African Americans > 60 (> 60)
[2017-09-09] MEDS: cefTRIAXone 1,000 MG in Water for inj. (sterile) 10 ML IVP SCH (08:50)
[2017-09-09 10:57] VITALS: BP 139/81
[2017-09-09] MEDS: Venlafaxine XR (24 HR) 37.5 MG CAP.ER.24H PO SCH (15:21)
[2017-09-09] MEDS: *HR* Ticagrelor 90 MG TABLET PO SCH (15:21)
[2017-09-09] MEDS: NIFEdipine XL (24 HR) 30 MG TAB.ER.24 PO SCH (15:21)
--- NOTE | 2017-09-09 17:35 | Event Note ---
Date of Encounter: 09/09/17 Time of Encounter: 13:00 Ms Hollins has been admitted with acute STEMI and found to have severe aortic stenosis. 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 This AM she feels OK. She was to be transferred to [facility] last evening for evaluation for TVAR but family declined. Today after discussion they have agreed to go to [facility]. Exam Alert. Comfortable Mucus membranes dry Heart reg No edema I/P 1. STEMI 2. Bilateral CVAs 3. Severe aortic stenosis Plan d/c to [facility] today.
== END 2017-09-09 18:00 | disposition other institution (70) | DRG 250 ==
LOC: EMEROO 12:09 → 2ANU 12:09 → 2NNU 16:43 → SUATTDRO 16:45 → 2NENU 09-08 07:55
PROVIDERS: ADMIT Internal Medicine Nephrology; ATTEND Internal Medicine

== ENCOUNTER 2017-10-16 10:30 | Inpatient (IN) ==
--- NOTE | 2017-10-16 10:44 | Emergency Department Note ---
Disposition Clinical Impression: NSTEMI (non-ST elevated myocardial infarction), Elevated brain natriuretic peptide (BNP) level Dyspnea Qualifiers: Dyspnea type: dyspnea on exertion Qualified Code(s): R06.09 - Other forms of dyspnea Disposition: Admitted As Inpatient Condition: Fair Time of Disposition: 13:04 General Adult HPI - General Chief complaint: ED Shortness of Breath/Dyspnea Stated complaint: JAYLENE Time Seen by Provider: 10/16/17 10:36 Source: patient, EMS Mode of arrival: EMS Limitations: no limitations Nursing Notes Reviewed: Yes Vital Signs Reviewed: Yes - History of Present Illness HPI Narrative: Patient is an 87 year female presents to emergency department via EMS from assisted living facility. She states that she has had shortness of breath for a long time however over the past 2-3 days this is significantly gotten worse. She states that her shortness of breath is worse with exertion. Patient denies any chest pain at this time. Patient denies use of inhalers or nebulizer treatments at home. Patient denies any other symptoms or pain at this time. - Related Data Home Medications Medication Instructions Recorded Confirmed Levothyroxine Sodium [Levoxyl] 25 mcg PO DAILY 09/07/17 10/16/17 Metoprolol XL (24 HR) Succ [Toprol 50 mg PO DAILY 09/07/17 10/16/17 Xl] Venlafaxine XR (24 HR) [Effexor Xr] 37.5 mg PO DAILY 09/07/17 10/16/17 Aspirin [Lo-Dose Aspirin EC] 81 mg PO DAILY 09/08/17 10/16/17 Atorvastatin [Lipitor] 40 mg PO HS 10/16/17 10/16/17 Buspirone HCl [Buspar] 10 mg PO TID PRN 10/16/17 10/16/17 Dronabinol [Marinol] 2.5 mg PO BID 10/16/17 10/16/17 Lutein 10 mg PO DAILY 10/16/17 10/16/17 Nitroglycerin [Nitrostat] 0.4 mg SL Q5M PRN 10/16/17 10/16/17 Ondansetron HCl [Zofran] 2 mg PO Q6H PRN 10/16/17 10/16/17 Previous Rx's Medication Instructions Recorded Acetaminophen [Tylenol] 500 mg PO Q6HR PRN tablet 09/08/17 Ticagrelor [Brilinta] 90 mg PO BID tablet 09/08/17 Allergies Allergy/AdvReac Type Severity Reaction Status Date / Time No Known Allergies Allergy Verified 09/04/17 10:04 All systems ED: reviewed and negative except as stated. Cardiovascular: Denies: chest pain Respiratory: Reports: dyspnea Past Medical History - Past Medical History Medical history: Reports: coronary artery disease, hyperlipidemia Psychiatric history: Reports: no psych history - Social History Smoking Status: Never smoker Alcohol use: Reports: none Drug use: Reports: none Physical Exam - General Limitations: no limitations General appearance: alert, in no apparent distress - Head Head exam: atraumatic, normocephalic - Eye Eye exam: Present: normal appearance, EOMI - Neck Neck exam: Present: normal inspection, full ROM, trachea midline - Respiratory Respiratory exam: Present: normal lung sounds bilaterally. Absent: respiratory distress, wheezes - Cardiovascular Cardiovascular exam: Present: regular rate, normal rhythm, normal heart sounds, +S1, +S2 - Abdominal Exam Abdominal exam: Present: soft, Non-Tender, normal bowel sounds - Neurological Exam Neurological exam: Present: alert, oriented X3 - Psychiatric Psychiatric exam: Present: normal affect, normal mood - Skin Skin exam: Present: warm, dry, intact Course Vital Signs Temperature 97.4 F L 10/16/17 10:33 Pulse Rate 88 10/16/17 10:33 Respiratory Rate 20 10/16/17 10:33 Blood Pressure 136/88 10/16/17 10:33 O2 Sat by Pulse Oximetry 97 10/16/17 10:33 Temperature 97.4 F L 10/16/17 10:33 Pulse Rate 85 10/16/17 11:52 Respiratory Rate 20 10/16/17 11:52 Blood Pressure 124/84 10/16/17 11:52 O2 Sat by Pulse Oximetry 97 10/16/17 11:52 Oxygen Delivery Oxygen Delivery Room Air Medical Decision Making - MDM Narrative Medical decision making narrative: The patient presented with shortness of breath will obtain a CBC, BMP, BNP, troponin, chest x-ray and EKG. The patient sounded clear on exam and did not appear to be short of breath at this time. We will obtain laboratory testing and we will ambulate the patient patient and elevated troponin of 0.11 and a BNP greater than 5000. Her EKG showed a sinus rhythm with nonspecific T-wave changes. We called and spoke with Dr. Hemphill diamond powder mixer and he recommended that we start the patient on heparin and have the patient admitted to the hospital. We were in agreement with this and have started the patient on heparin and will admit the patient to the medical service with a cardiology consult. Chest x-ray showed tiny pleural effusions. The patient and family have been informed of the findings. I called and spoke with the hospitalist and they have accepted the patient to their service. The patient will be admitted to the hospital at this time. - Medical Records Medical records reviewed: Yes I reviewed the patient's medical records. - Lab Data Lab results reviewed: Yes I reviewed the patient's lab results. Result diagrams: 10/16/17 12:52 10/16/17 10:51 Lab Results 10/16/17 10/16/17 10/16/17 Range/Units 10:51 10:51 10:51 WBC 8.8 (4.3-11.1) K/mcL RBC 4.24 (3.82-4.97) M/mcL Hgb 11.5 (11.5-15.4) g/dL Hct 37.9 (35.3-44.9) % MCV 89.4 (83.0-100.0) fL MCH 27.1 L (28.0-33.3) pg MCHC 30.3 L (31.6-35.5) g/dL RDW 16.4 H (11.5-14.5) % Plt Count 296 (140-400) K/mcL MPV 10.8 (9.4-12.4) fL Immature Gran % 0.3 (0-4) % Seg Neutrophils % 82.6 % Lymphocytes % 9.8 % Monocytes % 7.3 % Eosinophils % 0.0 % Basophils % 0.0 % Neutrophils # 7.3 (1.6-8.9) K/mcL Lymphocytes # 0.9 (0.6-4.6) K/mcL Monocytes # 0.6 (0.0-1.3) K/mcL Eosinophils # 0.0 (0.0-0.6) K/mcL Basophils # 0.0 (0.0-0.2) K/mcL PT (9.4-12.1) Seconds INR APTT (26.0-36.0) Seconds Sodium 142 (136-145) mEq/L Potassium 4.0 (3.5-5.1) mEq/L Chloride 109 H (98-107) mEq/L Carbon Dioxide 23 (23-29) mEq/L BUN 26 H (8-23) mg/dL Creatinine 0.70 (0.60-1.20) mg/dL Est GFR ( Amer) > 60 (> 60) Est GFR (Non-Af Amer) > 60 (> 60) BUN/Creatinine Ratio 37 H (6-26) Glucose 141 H (70-105) mg/dL Calculated Osmolality 301 H (280-300) Lactic Acid 3.6 H (0.5-2.2) mmol/L Calcium 9.5 (8.6-10.3) mg/dL Troponin I (< 0.04) ng/mL B-Natriuretic Peptide (Less than 100) pg/mL 10/16/17 10/16/17 10/16/17 Range/Units 10:51 10:51 12:52 WBC (4.3-11.1) K/mcL RBC (3.82-4.97) M/mcL Hgb (11.5-15.4) g/dL Hct (35.3-44.9) % MCV (83.0-100.0) fL MCH (28.0-33.3) pg MCHC (31.6-35.5) g/dL RDW (11.5-14.5) % Plt Count (140-400) K/mcL MPV (9.4-12.4) fL Immature Gran % (0-4) % Seg Neutrophils % % Lymphocytes % % Monocytes % % Eosinophils % % Basophils % % Neutrophils # (1.6-8.9) K/mcL Lymphocytes # (0.6-4.6) K/mcL Monocytes # (0.0-1.3) K/mcL Eosinophils # (0.0-0.6) K/mcL Basophils # (0.0-0.2) K/mcL PT (9.4-12.1) Seconds INR APTT (26.0-36.0) Seconds Sodium (136-145) mEq/L Potassium (3.5-5.1) mEq/L Chloride (98-107) mEq/L Carbon Dioxide (23-29) mEq/L BUN (8-23) mg/dL Creatinine (0.60-1.20) mg/dL Est GFR ( Amer) (> 60) Est GFR (Non-Af Amer) (> 60) BUN/Creatinine Ratio (6-26) Glucose (70-105) mg/dL Calculated Osmolality (280-300) Lactic Acid 3.4 H (0.5-2.2) mmol/L Calcium (8.6-10.3) mg/dL Troponin I 0.11 H* (< 0.04) ng/mL B-Natriuretic Peptide > 5000 H (Less than 100) pg/mL 10/16/17 10/16/17 Range/Units 12:52 12:52 WBC 7.5 (4.3-11.1) K/mcL RBC 4.01 (3.82-4.97) M/mcL Hgb 11.0 L (11.5-15.4) g/dL Hct 36.3 (35.3-44.9) % MCV 90.5 (83.0-100.0) fL MCH 27.4 L (28.0-33.3) pg MCHC 30.3 L (31.6-35.5) g/dL RDW 16.1 H (11.5-14.5) % Plt Count 237 (140-400) K/mcL MPV 10.7 (9.4-12.4) fL Immature Gran % (0-4) % Seg Neutrophils % % Lymphocytes % % Monocytes % % Eosinophils % % Basophils % % Neutrophils # (1.6-8.9) K/mcL Lymphocytes # (0.6-4.6) K/mcL Monocytes # (0.0-1.3) K/mcL Eosinophils # (0.0-0.6) K/mcL Basophils # (0.0-0.2) K/mcL PT 12.4 H (9.4-12.1) Seconds INR 1.1 APTT 28.8 (26.0-36.0) Seconds Sodium (136-145) mEq/L Potassium (3.5-5.1) mEq/L Chloride (98-107) mEq/L Carbon Dioxide (23-29) mEq/L BUN (8-23) mg/dL Creatinine (0.60-1.20) mg/dL Est GFR ( Amer) (> 60) Est GFR (Non-Af Amer) (> 60) BUN/Creatinine Ratio (6-26) Glucose (70-105) mg/dL Calculated Osmolality (280-300) Lactic Acid (0.5-2.2) mmol/L Calcium (8.6-10.3) mg/dL Troponin I (< 0.04) ng/mL B-Natriuretic Peptide (Less than 100) pg/mL - Radiology Data Radiology results reviewed: Yes I reviewed the patient's radiology results. - EKG Data EKG #1 EKG attestation: Yes I reviewed and interpreted this EKG. EKG results narrative: EKG showed a sinus rhythm at a rate of 96 bpm, NJ interval of 150, QRS duration of 102, QTC of 436 with a normal axis. There are some nonspecific T-wave changes in the lateral leads. This is compared to previous EKG on 09/08/17. At this time there is some elevations in lead 3. EKG at that time showed a sinus tachycardia at a rate of 113. Critical Care Time Critical Care Time: Yes Total Critical Care Time: 40 Attestation: Critical care performed: Time is exclusive of separately billable procedures. Time includes: direct patient care, patient reassessment, coordination of patient care, interpretation of data (laboratory data, radiology data, and respiratory data), review of patient's medical records, medical consultation and documentation of patient care. Procedures included in critical care time: Procedures excluded from critical care time: Attestation Statement - Attestation Attestation: I, Sen Doshi DO, examined this patient [id number] and my medical decision-making was reviewed with Dr. Jong Dozier, Resident Physician. I agree with the documented findings, disposition and treatment plan as described except to the extent set forth below. Please see my progress notes for details. 87-year-old female presents emergency room by EMS for evaluation of shortness of breath. She was just discharged from the hospital patient has been a resident of a assisted living facility since being discharged home from the hospital. Patient is currently denying any chest pain. She does have heaviness to her chest. She does not have any acute signs of fluid overload. Her lungs are clear no coarse crackles or wheezing noted. Heart is regular. No murmurs are auscultated at this time. Abdomen is soft nontender nondistended no pulsatile lesions or mass. Patient does not have any pitting edema in lower extremities. She is alert, oriented, speaking in full sentences. She answers questions appropriately. She moves all 4 extremities with purpose. Patient is concerning for potential fluid overload were versus exacerbation of her chronic cardiac related illness. Chart review is completed showing catheterization performed on 09/07/17. The catheterization did show an ejection fraction of 45% with multivessel disease and right-sided heart failure. Patient is concerning for progression this illness at this time. Symptomatic treatment will be established. We will continue to monitor his treatment course is completed. Consultation placed onto the on-call diamond powder mixer further recommendations and intervention. Patient will be admitted for definitive management and evaluation. See detailed documentation of physical exam, medical intervention, medical decision-making and disposition and the resident physician's note. 40 minutes of critical care applied to this patient secondary to starting a heparin drip at the request of the diamond powder mixer. Patient does not have any acute signs of widened mediastinum her hemoglobin is normal. Coags were added on. Urinalysis also had a nondilated or any hematuria. Patient denies any hematochezia or melena. Disposition will be admission for further management and treatment course. 1300 Patient to be started on heparin at the request of the diamond powder mixer. No active bleeding noted per the patient. Correlation studies were ordered. Vital signs remained stable. Hospitals contacted for admission. Approximately 40 minutes of critical care applied to this patient. Admission process to be completed this time for further evaluation of elevated troponin and BNP. Patient family fontanelle comfortable with this plan.
[2017-10-16 11:03] LABS: Hematocrit 37.9 % (35.3-44.9); Hemoglobin 11.5 g/dL (11.5-15.4); Immature Granulocytes % 0.3 % (0-4); Lymphocytes # 0.9 K/mcL (0.6-4.6); Lymphocytes % 9.8 %; Mean Corpuscular HGB Conc 30.3 g/dL (31.6-35.5); Mean Corpuscular Hemoglobin 27.1 pg (28.0-33.3); Mean Corpuscular Volume 89.4 fL (83.0-100.0); Mean Platelet Volume 10.8 fL (9.4-12.4); Monocytes # 0.6 K/mcL (0.0-1.3); Monocytes % 7.3 %; Neutrophils # 7.3 K/mcL (1.6-8.9); Platelet Count 296 K/mcL (140-400); Red Blood Count 4.24 M/mcL (3.82-4.97); Red Cell Distribution Width 16.4 % (11.5-14.5); Segmented Neutrophils % 82.6 %
[2017-10-16 11:20] LABS: BUN/Creatinine Ratio 37 (6-26); Blood Urea Nitrogen 26 mg/dL (8-23); Calcium 9.5 mg/dL (8.6-10.3); Carbon Dioxide 23 mEq/L (23-29); Chloride 109 mEq/L (98-107); Glucose 141 mg/dL (70-105); Osmolality,Calculated 301 (280-300); Sodium 142 mEq/L (136-145); eGFR For African Americans > 60 (> 60); eGFR For Non-African Americans > 60 (> 60)
[2017-10-16] MEDS ORDERED: 0.9 % Sodium Chloride 1,000 ML IVC ONE (11:28)
[2017-10-16] MEDS ORDERED: 0.9 % Sodium Chloride 500 ML IVC ONE (11:29)
[2017-10-16] MEDS ORDERED: *HR* Heparin 5,000 UNIT/ML VIAL IVP PRN ×2 (12:25)
[2017-10-16] MEDS ORDERED: *HR* Heparin 5,000 UNIT/ML VIAL IVP ONE (12:25)
[2017-10-16] MEDS ORDERED: Heparin 25,000 UNIT/500 ML D5W 25,000 UNIT/500 ML BAG IVC SCH (12:30)
[2017-10-16 13:02] LABS: Hematocrit 36.3 % (35.3-44.9); Mean Corpuscular HGB Conc 30.3 g/dL (31.6-35.5); Mean Corpuscular Hemoglobin 27.4 pg (28.0-33.3); Mean Corpuscular Volume 90.5 fL (83.0-100.0); Mean Platelet Volume 10.7 fL (9.4-12.4); Platelet Count 237 K/mcL (140-400); Red Blood Count 4.01 M/mcL (3.82-4.97); Red Cell Distribution Width 16.1 % (11.5-14.5)
[2017-10-16 13:07] LABS: INR 1.1; Prothrombin Time 12.4 Seconds (9.4-12.1)
[2017-10-16 13:10] LABS: Activated Partial Thrombo Time 28.8 Seconds (26.0-36.0)
[2017-10-16] MEDS ORDERED: Naloxone 0.4 MG/ML INJ IVP PRN (13:56)
[2017-10-16] MEDS ORDERED: Acetaminophen 325 MG TABLET PO PRN (14:09)
[2017-10-16] MEDS ORDERED: Nitroglycerin 0.4 MG TAB.SUBL SL PRN (14:19)
[2017-10-16] MEDS ORDERED: *HR* LORazepam 2 MG/ML VIAL IVP PRN (14:26)
--- NOTE | 2017-10-16 14:33 | Cardiology Consult Note ---
Date of Encounter: 10/16/17 Time of Encounter: 14:31 Assessment and Plan (1) Aortic stenosis, severe Current Visit: No Status: Acute Patient with Sever based on last ECHO 08/27 "Severely calcified and restricted aortic valve leaflets with severe aortic stenosis. JULIETA 0.6cm2" Patient evaluated at [facility] for TAVR. Was deemed not to be a candidate. Poor prognosis. Likely 6 months. Consult placed to palliative care. Case discussed with Palliative ADAPTED PHYSICAL EDUCATION AIDE. Appreciate their help and recommendations. Consult to public services librarian placed to assist daughter with POA paperwork. Most likely her dyspnea is from here severe . (2) CHF (congestive heart failure) Current Visit: No Status: Acute BNP> 5,000 ECHO 08/27 showed: "LVEF 45%. Mild reduction in LV systolic function with possible abnormal inferoseptal wall motion. Moderate concentric left ventricular hypertrophy. Diastolic dysfunction with elevated filling pressures. Normal right ventricular structure and function. Severely calcified and restricted aortic valve leaflets with severe aortic stenosis. JULIETA 0.6cm2 Moderate mitral regurgitation. No pulmonary hypertension. Ascending aorta is not fully visualized. However, images provided suggest aortic root size is upper limits of normal, 3.7cm for BSA." Patient not on home diuretic or BERHANE. Is on metoprolol and ASA. Plan continue metoprolol, ASA Consider starting BERHANE inhibitor While patient does not appear clinically volume overloaded (no JVD, pedal edema , or pulmonary edema on CXR) Agree with plan to diures with low dose lasix to see if helps patient's symptoms. Dyspnea may all be from here severe . 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 EKG shows non specific T wave changes. Patient with hx of CAD s/p CABG and Stent last C 08/27 showed: "severe [place] three vessel coronary artery disease. Patient had PTCA in the mid RCA with improvement in heavily calcified stenosis S/P CABG 1 of 2 patent bypass grafts. There are ipsilateral collaterals noted in the RCA and the LAD fills via the sequential Y-graft of the 1st OM/1st diagonal. EF known to be 45% with severe aortic stenosis by echo Moderate PAD - Right FOIL SPINNER" Patient started on heparin drip continue to trend troponins. continue to monitor. Patient on ASA Discussion w patient/family: The assessment and plan as outlined above was discussed with the patient and/or family members who expressed understanding and agreement. All questions were answered. Thank you for involving us in the care of your patient. Please call with any questions. History of Present Illness Consult date: 10/16/17 Requesting physician: Jong Dozier Consult reason: elevated Troponin, Elevated BNP Chief complaint: SOB History of present illness: Ms. Hollins is a 87 year old female c PMHx of CAD sp CABG [place] [facility] [place] 08/27 with 1 stent placed, CVA, , HLD, HTN who was admitted to [facility] for worsening SOB. Patient was seen at [facility] 09/04-09/09 for STEMI and CVA. Patient was transferred to [facility] for higher level of care for acute infarcts and possible TAVR for severe . Per family patient was stabilized from Neuro perspective and transferred to cardiology service. Per family patient not considered candidate for TAVR at that time. Patient went to Rehab post hospitalization at [facility] and then transitioned to an assisted living facility. Patient has been progressively more short of breath over the last few days prompting family to bring her in. Patient denies Chest pain, swelling in legs. However, patient did not have chest pain prior to her STEMI either. Patient troponin 0.11 on admission. Patient's labs also noticeable for a BNP >5, 000. On patient's last admission ECHO showed EF 45% and diastolic dysfunction. Patient not on home diuretic or BERHANE. Is on metoprolol and ASA. patient is on Brilinta at home but currently on hold as on heparin drip. Past Med Surg Social Fam HX - Past Medical History Medical history: coronary artery disease, hyperlipidemia Psychiatric history: no psych history - Social History Smoking Status: Never smoker Smokeless Tobacco Status: No Alcohol use: none Drug use: none - Family History Father Race: Family Member Ethnicity: Non- Living Status: Age at : 82 Cause of : HD Hx Family Cardiac Disorders: Yes (NH, CAD, HD) Mother Race: Family Member Ethnicity: Non- Living Status: Age at : 79 Cause of : DM complications Hx Family Endocrine Disorder: Yes (DM) Brother Race: Family Member Ethnicity: Non- Living Status: Age at : 86 Cause of : HD Hx Family Cardiac Disorders: Yes (HD, CAD, HTN) Sister Race: Family Member Ethnicity: Non- Living Status: Age at : 54 Cause of : Stroke complications Hx Family Cardiac Disorders: Yes (NH, CAD, Stroke) Medications and Allergies Levothyroxine Sodium [Levoxyl] 25 mcg PO DAILY 09/07/17 [History] Metoprolol XL (24 HR) Succ [Toprol Xl] 50 mg PO DAILY 09/07/17 [History] Venlafaxine XR (24 HR) [Effexor Xr] 37.5 mg PO DAILY 09/07/17 [History] Acetaminophen [Tylenol] 500 mg PO Q6HR PRN tablet 09/08/17 [Rx] Aspirin [Lo-Dose Aspirin EC] 81 mg PO DAILY 09/08/17 [History] Ticagrelor [Brilinta] 90 mg PO BID tablet 09/08/17 [Rx] Atorvastatin [Lipitor] 40 mg PO HS 10/16/17 [History] Buspirone HCl [Buspar] 10 mg PO TID PRN 10/16/17 [History] Dronabinol [Marinol] 2.5 mg PO BID 10/16/17 [History] Lutein 10 mg PO DAILY 10/16/17 [History] Nitroglycerin [Nitrostat] 0.4 mg SL Q5M PRN 10/16/17 [History] Ondansetron HCl [Zofran] 2 mg PO Q6H PRN 10/16/17 [History] 3 Allergy/AdvReac Type Severity Reaction Status Date / Time No Known Allergies Allergy Verified 09/04/17 10:04 All Systems Review: A 10-system review of systems was performed and is negative for pertinent findings except as documented above in the HPI. Physical Examination Vital Signs, Last 4 Hours Pulse Resp BP Pulse Ox 10/16/17 13:32 83 18 132/89 93 General: Conversant, No Apparent Distress HEENT: Atraumatic, Normocephaly Neck: No JVD Cardiac: Reg Rate and Rhythm, Normal S1 and S2, Other (murmur present) Lungs: Normal Breath Sounds, No Wheeze, Rales, Rhonchi, Other (tachypnea) Neuro: Alert and responsive, Other (no new deficits ) Abdomen: Soft, Non-Tender Skin: No rashes noted on visualized skin Musculoskeletal: No Chest Wall Tenderness Extremities: No Clubbing, No Cyanosis, No Edema, Normal Pulses Results 10/16/17 12:52 10/16/17 10:51 Consult Discharge Plan - Plan Referrals: NONE,PCP [Primary Care Provider] -
--- NOTE | 2017-10-16 14:34 | Internal Med History&Physical ---
<Riki Eldridge - Last Filed: 10/16/17 15:12> Date of Encounter: 10/16/17 Time of Encounter: 13:30 Assessment and Plan (1) CHF (congestive heart failure) Current visit: Yes Status: Acute New onset of CHF. BNP 5000 on admission. Pt. and family deny previous hx of CHF. Pt. reports SOB/Dyspnea over the past week which has worsened. Hx of CAD w/ heart catheterization and stent placement x1 in late August 2017. Pt. denies use of diuretic. IVP lasix 20 mg daily ordered. Partida catheter ordered d/t pts. urinary retention and incontinence. Monitor I&O and daily weight. Continuous cardiac telemetry. Supplemental O2 w/titration and SpO2 monitoring. Echocardiogram done in 08/27. Cardiology consult ordered in ED and I appreciate the consult. Pt. discussed w/Dr. Vance who is in agreement w/plan of care. Pt. is high risk for further morbidity, cardiac event, and respiratory distress/ failure d/t current sx, new onset of CHF, previous heart cath w/stent x1 <1 month ago, hx, and risk factors. Inpatient. Qualifiers: Congestive heart failure type: unspecified Congestive heart failure chronicity: unspecified Qualified Code(s): I50.9 - Heart failure, unspecified (2) Dyspnea Current visit: Yes Status: Acute Acute SOB and dyspnea for the past week which has been worsening. Pt. has hx of CAD. Supplemental O2 w/titration and SpO2 monitoring. DuoNebs Q6 PRN. IVP lasix 20 mg daily. Qualifiers: Dyspnea type: dyspnea on exertion Qualified Code(s): R06.09 - Other forms of dyspnea (3) Elevated troponin Current visit: Yes Status: Acute Acutely elevated initial troponin of 0.11. Previously elevated troponin in of 5.02 when heart catheterization and stent x1 placed. Pt. denies chest pain. Pt. placed on heparin drip. Continuous cardiac telemetry. Cardiology consult ordered in ED and I appreciate the consult. EKG today shows sinus rhythm with possible left atrial enlargement and nonspecific ST and T-wave abnormality. Previous Echo in 08/27. Continue pts. aspirin therapy, HTN, and HLD medications. Hold Brilinta d/t current heparin drip. Patient to be monitored closely for signs of cardiac/respiratory distress. (4) Failure to thrive in adult Current visit: Yes Status: Acute Acute failure to thrive in adult. Pt. reports reduced appetite and intake since last hospitalization in late August. Family reports weight loss. Cardiac diet. Nutrition consult ordered for PO supplementation. Monitor I&O and daily weight. SW consult to assess for home needs. (5) Weakness Current visit: Yes Status: Acute Acute weakness reported for the past week. Falls/safety precautions, up with assist, bed rest w/bedside commode w/assist. PT/OT consults ordered to assess patient for rehabilitation needs. (6) HTN (hypertension) Current visit: Yes Status: Chronic Hx of chronic HTN. Monitor pt. and VS. Continue pts. Metoprolol. Qualifiers: Hypertension type: essential hypertension Qualified Code(s): I10 - Essential (primary) hypertension (7) HLD (hyperlipidemia) Current visit: Yes Status: Chronic Hx of chronic HLD. Lipid panel in a.m. labs. Continue pts. Lipitor. Qualifiers: Hyperlipidemia type: pure hypercholesterolemia Qualified Code(s): E78.00 - Pure hypercholesterolemia, unspecified; E78.0 - Pure hypercholesterolemia (8) CAD (coronary artery disease) Current visit: Yes Status: Chronic Hx of chronic CAD. Continuous cardiac telemetry. Continue patient's aspirin therapy, metoprolol, Lipitor, and Brilinta. Qualifiers: Coronary Disease-Associated Artery/Lesion type: [place] artery [place] vs. transplanted heart: [place] heart Associated angina: without angina Qualified Code(s): I25.10 - Atherosclerotic heart disease of [place] coronary artery without angina pectoris (9) Hypothyroidism Current visit: Yes Status: Chronic History of chronic hypothyroidism. Continue patient's Synthroid. TSH and free T4 ordered. Qualifiers: Hypothyroidism type: unspecified Qualified Code(s): E03.9 - Hypothyroidism , unspecified (10) History of CVA (cerebrovascular accident) Current visit: Yes Status: Ruled-out Hx of previous CVA in 08/27. Pt. reports some left-sided residual weakness, mild facial droop, and speech deficit. PT/OT consults ordered to assess pt. for rehabilitation needs. Speech consult ordered for rehabilitation needs. Continue aspirin therapy and Brilinta. (11) DVT prophylaxis Current visit: Yes Status: Acute Patient placed on heparin drip for elevated troponin of 0.11. Monitor patient for signs of bleeding. Internal Medicine - H&P: HPI Chief complaint: SOB/Dyspnea Admitted From: Emergency Dept Plans for Post Hospital Care: Home History of present illness: Ms. Hollins is a 87 year old female with medical hx of CAD, HTN, HLD, and hypothyroidism presents from the ED with chief complaint shortness of breath, dyspnea and weakness which has become progressively worse. Patient reports she is a resident of [facility]. Denies use of home oxygen, inhalers, or nebulizers. Patient reports being hospitalized in late August for heart catheterization and states she also suffered CVA with residual left-sided weakness and speech deficit. Pt. also reports anxiety r/t health and reduced appetite/intake. Pt. reports some nausea w/vomiting and weakness but denies recent illness, fever or chills, chest pain, palpitations, headache, changes in vision, unusual bleeding, abdominal pain, diarrhea, constipation, dizziness, lightheadedness, presyncope, or syncope. Past Med Surg Social Fam HX - Past Medical History Source: patient, old records reviewed, obtained from family Medical history: coronary artery disease, hyperlipidemia, hypertension Psychiatric history: no psych history - Past Surgical History Surgical History: coronary bypass (CABG) ([facility] in 2000) - Social History Smoking Status: Never smoker Smokeless Tobacco Status: No Alcohol use: none Drug use: none Current living situation: Assisted Living Activity Level: Uses cane/walker Recent Out of Country Travel Within the Last 8 Weeks: No Exposure or Possible Exposure to Illness During Travel: No - Family History Father Race: Family Member Ethnicity: Non- Living Status: Age at : 82 Cause of : HD Hx Family Cardiac Disorders: Yes ([place], CAD, HD) Mother Race: Family Member Ethnicity: Non- Living Status: Age at : 79 Cause of : DM complications Hx Family Endocrine Disorder: Yes (DM) Brother Race: Family Member Ethnicity: Non- Living Status: Age at : 86 Cause of : HD Hx Family Cardiac Disorders: Yes (HD, CAD, HTN) Sister Race: Family Member Ethnicity: Non- Living Status: Age at : 54 Cause of : Stroke complications Hx Family Cardiac Disorders: Yes ([place], CAD, Stroke) Internal Medicine - H&P: Meds Levothyroxine Sodium [Levoxyl] 25 mcg PO DAILY 09/07/17 [History] Metoprolol XL (24 HR) Succ [Toprol Xl] 50 mg PO DAILY 09/07/17 [History] Venlafaxine XR (24 HR) [Effexor Xr] 37.5 mg PO DAILY 09/07/17 [History] Acetaminophen [Tylenol] 500 mg PO Q6HR PRN tablet 09/08/17 [Rx] Aspirin [Lo-Dose Aspirin EC] 81 mg PO DAILY 09/08/17 [History] Ticagrelor [Brilinta] 90 mg PO BID tablet 09/08/17 [Rx] Atorvastatin [Lipitor] 40 mg PO HS 10/16/17 [History] Buspirone HCl [Buspar] 10 mg PO TID PRN 10/16/17 [History] Dronabinol [Marinol] 2.5 mg PO BID 10/16/17 [History] Lutein 10 mg PO DAILY 10/16/17 [History] Nitroglycerin [Nitrostat] 0.4 mg SL Q5M PRN 10/16/17 [History] Ondansetron HCl [Zofran] 2 mg PO Q6H PRN 10/16/17 [History] 3 Allergy/AdvReac Type Severity Reaction Status Date / Time No Known Allergies Allergy Verified 09/04/17 10:04 All Systems PM: A 10-system review of systems was performed and is negative for pertinent findings except as documented above in the HPI. - Constitutional Constitutional: as per HPI, anorexia, fatigue, weakness, weight loss - EENT Eyes: no change in vision, no discharge, no pain, no photophobia Ears: no ear discharge, no ear pain, no tinnitus Nose, mouth and throat: no dysphagia, no nasal discharge, no neck pain, no sore throat - Breasts Breasts: as per HPI - Cardiovascular Cardiovascular ROS IM: as per HPI, dyspnea, dyspnea on exertion, no chest pain, no diaphoresis, no lightheadedness, no palpitations, no syncope - Respiratory Respiratory: as per HPI, dyspnea, dyspnea on exertion, no cough, no wheezing, no excessive phlegm production - Gastrointestinal Gastrointestinal: as per HPI, nausea, vomiting, no abdominal pain, no diarrhea, no hematemesis, no hematochezia, no melena - Genitourinary Genitourinary: as per HPI, urinary incontinence, other (Urinary retention), no change in urinary stream, no dysuria, no flank pain, no hematuria Menstruation: as per HPI - Musculoskeletal Musculoskeletal ROS IM: no numbness, no tingling - Integumentary Integumentary IM: no rash, no unusual bruising - Neurological Neurological ROS: as per HPI, weakness (Left-sided residual from CVA in August ), no confusion, no convulsions, no focal weakness, no numbness, no tingling, no tremor(s) - Psychiatric Psychiatric: as per HPI, anxiety (R/T health) - Endocrine Endocrine IM: as per HPI - Hematologic/Lymphatic Hematologic/Lymphatic: no easy bruising - Allergic/Immunologic Allergic/Immunologic: as per HPI - Constitutional Vitals: Temp Pulse Resp BP Pulse Ox 97.4 F L 83 18 132/89 93 10/16/17 10:33 10/16/17 13:32 10/16/17 13:32 10/16/17 13:32 10/16/17 13:32 General appearance: Present: cooperative, mild distress (Anxiety r/t health), A& O X 3, pleasant, underweight, loss of weight, answers questions appropriately - Head Head exam: Present: atraumatic, normocephalic - Eye Eye exam: Present: PERRL, conjuntiva pink, sclera anicteric Pupils: Present: PERRL - ENT ENT exam: Present: normal exam - Neck Neck exam general surgery: Present: supple, trachea midline. Absent: lymphadenopathy - Respiratory Respiratory exam: Present: CTAB. Absent: accessory muscle use, rales, rhonchi, wheezes - Cardiovascular Cardiovascular exam: Present: RRR, +S1, +S2. Absent: diastolic murmur, gallop, rubs, systolic murmur - GI/Abdominal GI/Abdominal exam: Present: normal bowel sounds, soft, no peritoneal signs. Absent: distended, tenderness - Rectal Rectal exam: Present: deferred - Additional comments: exam deferred. - Extremities Exam Extremities exam: Present: warm, radial pulses palpable and symmetrical. Absent : calf tenderness, cyanotic, pedal edema - Back Exam Back exam: Present: normal inspection - Neurological Exam Neurological exam: Present: CN II-XII intact, oriented X3, no focal deficits, facial droop (Mild left-sided facial droop (residual from 08/27 CVA)), speech deficit (Mild speech deficit (residual from 08/27 CVA)). Absent: pronater drift - Psychiatric Psychiatric exam: Present: anxious - Skin Skin exam: Present: dry, intact Internal Med - H&P Results - Labs CBC & Chem 7: 10/16/17 12:52 10/16/17 10:51 - EKG Data EKG shows normal: sinus rhythm - EKG Data Prior EKG available for review: yes EKG comments: 10/16/17 14:44 EKG dated 09/08/17 shows sinus tachycardia. EKG dated 10/16/17 shows sinus rhythm with possible left atrial enlargement and nonspecific ST and T-wave abnormality. - Diagnostic Studies Chest x-ray Additional comments: Impressions Chest X-Ray 10/16/17 10:36 IMPRESSION: 1. Tiny pleural effusions, slightly increased from the previous study. 2. Scattered interstitial thickening, similar to the previous study and suggesting fibrotic change. No new airspace consolidation. D/ / 10/16/2017 11:59:53 Allie Ferguson / bandar Interpreting Provider: Allie Ferguson <Benson Vance - Last Filed: 10/16/17 19:00> Date of Encounter: 10/16/17 Internal Medicine - H&P: HPI History of present illness: Ms. Hollins is a 87 year old female All Systems PM: A 10-system review of systems was performed and is negative for pertinent findings except as documented above in the HPI. - Constitutional Vitals: Temp Pulse Resp BP Pulse Ox 98.6 F 97 16 107/77 96 10/16/17 18:47 10/16/17 18:47 10/16/17 18:47 10/16/17 18:47 10/16/17 18:47 Internal Med - H&P Results - Labs CBC & Chem 7: 10/16/17 12:52 10/16/17 10:51 - Attending Attestation Discussed with DELMY and agree with assessment and plan IV diuresis for heart failure and trending serial troponins
[2017-10-16] MEDS ORDERED: Ondansetron 4 MG/2 ML VIAL IVP PRN (14:41)
[2017-10-16] MEDS: Pantoprazole 40 MG VIAL IVP SCH (15:47)
[2017-10-16] MEDS: Furosemide 20 MG/2 ML VIAL IVP SCH (15:47)
--- NOTE | 2017-10-16 16:45 | Electrocardiograph Report ---
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
[2017-10-16] MEDS ORDERED: *HR* Ticagrelor 90 MG TABLET PO SCH (21:00)
[2017-10-16 23:43] LABS: Thyroid Stimulating Hormone 4.433 mcIU/mL (0.340-5.600)
[2017-10-17 01:27] LABS: Basophils % 0.2 %; Hematocrit 35.3 % (35.3-44.9); Hemoglobin 10.9 g/dL (11.5-15.4); Immature Granulocytes % 0.4 % (0-4); Lymphocytes # 0.9 K/mcL (0.6-4.6); Lymphocytes % 16.4 %; Mean Corpuscular HGB Conc 30.9 g/dL (31.6-35.5); Mean Corpuscular Hemoglobin 27.3 pg (28.0-33.3); Mean Corpuscular Volume 88.3 fL (83.0-100.0); Mean Platelet Volume 10.7 fL (9.4-12.4); Monocytes # 0.5 K/mcL (0.0-1.3); Monocytes % 8.8 %; Neutrophils # 4.2 K/mcL (1.6-8.9); Platelet Count 240 K/mcL (140-400); Red Cell Distribution Width 16.1 % (11.5-14.5); Segmented Neutrophils % 74.2 %
[2017-10-17 02:16] LABS: Alanine Aminotransferase 22 Units/L (7-52); Albumin 3.7 g/dL (3.5-5.7); Albumin/Globulin Ratio 1.4 (1.1-2.2); Alkaline Phosphatase 173 Units/L (34-104); Aspartate Amino Transferase 43 Units/L (13-39); BUN/Creatinine Ratio 35 (6-26); Bilirubin,Total 1.8 mg/dL (0.3-1.0); Blood Urea Nitrogen 22 mg/dL (8-23); Calcium 9.2 mg/dL (8.6-10.3); Carbon Dioxide 24 mEq/L (23-29); Chloride 108 mEq/L (98-107); Chol/HDL Ratio 2.7 (0-4.9); Cholesterol 85 mg/dL (< 200); Globulin 2.6 g/dL (2.4-3.5); Glucose 128 mg/dL (70-105); HDL Cholesterol 32 mg/dL (40-59); Osmolality,Calculated 299 (280-300); Potassium 3.3 mEq/L (3.5-5.1); Sodium 142 mEq/L (136-145); Total Protein 6.3 g/dL (6.4-8.9); eGFR For African Americans > 60 (> 60); eGFR For Non-African Americans > 60 (> 60)
[2017-10-17 03:22] LABS: LDL Cholesterol,Calculated 36 mg/dL (0-99); Triglycerides 84 mg/dL (< 150)
[2017-10-17] MEDS ORDERED: Levothyroxine 25 MCG TABLET PO SCH (06:30)
[2017-10-17 06:39] LABS: Bilirubin,Urine Small (Negative); Blood,Urine Large (Negative); Color,Urine Dark Yellow (Yellow); Glucose,Urine (UA) Normal (Normal); Ketones,Urine Negative (Negative); Leukocyte Esterase,Urine Negative (Negative); Nitrite,Urine Negative (Negative); PH,Urine 5.5 pH Units (5.0-8.0); Protein,Urine 30 mg/dL (Neg-Trace); Specific Gravity,Urine 1.026 (1.010-1.025); Urobilinogen,Urine Normal (Normal)
[2017-10-17 06:42] LABS: Bacteria,Urine Few per hpf (None-Few); Hyaline Casts,Urine None Seen per lpf (None-Few); RBC,Urine TNTC per hpf (0-3); Squamous Epithelial Cell,Urine Moderate per lpf (None-Few)
[2017-10-17 06:51] LABS: Clarity,Urine Hazy (Clear)
[2017-10-17] MEDS: Pantoprazole 40 MG VIAL IVP SCH (08:18)
[2017-10-17] MEDS: Furosemide 20 MG/2 ML VIAL IVP SCH (08:18)
[2017-10-17] MEDS ORDERED: Venlafaxine XR (24 HR) 37.5 MG CAP.ER.24H PO SCH (09:00)
[2017-10-17] MEDS ORDERED: Metoprolol XL (24 HR) Succ 50 MG TAB.ER.24H PO SCH (09:00)
[2017-10-17] MEDS ORDERED: Aspirin Enteric Coated 81 MG Tablet PO SCH (09:00)
[2017-10-17] MEDS ORDERED: LUTEIN 10 MG PO SCH (09:00)
[2017-10-17] MEDS ORDERED: Gentamicin OPTH Soln 5 ML BOTTLE LEFT EYE SCH (09:45)
--- NOTE | 2017-10-17 09:47 | Internal Med Progress Note ---
Date of Encounter: 10/17/17 Time of Encounter: 09:45 - Assessment and plan (1) Aortic stenosis, severe Current Visit: No Status: Acute Assessment and plan: Per cardiology report:Not candidate for TAVR per referral 2/2 fraility. Patient declines 3rd opinion, which is reasonable. Discussed natural course of aortic stenosis and that no medical therapy is available to directly treat , only to address symptoms. At this point, recommend making MPOA/living will, changing to DNR (extremely poor prognosis if ACLS for cardiac arrest). Consult palliative care and social professionals. (2) CHF (congestive heart failure) Current Visit: No Status: Acute Assessment and plan: New onset of CHF. BNP 5000 on admission. Pt. and family deny previous hx of CHF. Pt. reports SOB/Dyspnea over the past week which has worsened. Hx of CAD w/ heart catheterization and stent placement x1 in late August 2017. Pt. denies use of diuretic. IVP lasix 20 mg daily ordered. Partida catheter ordered d/t pts. urinary retention and incontinence. Monitor I&O and daily weight. Continuous cardiac telemetry. Supplemental O2 w/titration and SpO2 monitoring. Echocardiogram done in 08/27. Cardiology consulted and appreciate information. Pt. is high risk for further morbidity, cardiac event, and respiratory distress/ failure d/t current sx, new onset of CHF, previous heart cath w/stent x1 <1 month ago, hx, and risk factors. Continue diuretic Await palliative team input Qualifiers: Congestive heart failure type: combined Congestive heart failure chronicity : unspecified Qualified Code(s): I50.40 - Unspecified combined systolic ( congestive) and diastolic (congestive) heart failure (3) Elevated troponin Current Visit: Yes Status: Acute Assessment and plan: Acutely elevated initial troponin of 0.11, now trending down. Previously elevated troponin in 08/27 of 5.02 when heart catheterization and stent x1 placed. Pt. denies chest pain. Continue heparin drip. Continuous cardiac telemetry. Cardiology following and appreciate recommendations EKG showed sinus rhythm with nonspecific ST and T-wave abnormality. Previous Echo in 08/27. Continue aspirin therapy and metoptolol. Hold Brilinta d/t current heparin drip. Continue to monitor Patient closely for signs of cardiac/respiratory distress. Per cadiology note: "severe [place] three vessel coronary artery disease. Patient had PTCA in the mid RCA with improvement in heavily calcified stenosis S/P CABG 1 of 2 patent bypass grafts. There are ipsilateral collaterals noted in the RCA and the LAD fills via the sequential Y-graft of the 1st OM/1st diagonal. EF known to be 45% with severe aortic stenosis by echo Moderate PAD - Right [employer]" (4) Failure to thrive in adult Current Visit: No Status: Acute Assessment and plan: Acute failure to thrive in adult. Pt. reports reduced appetite and intake since last hospitalization in late August. Family reports weight loss. Cardiac diet. Nutrition consult ordered for PO supplementation. Monitor I&O and daily weight. SW consult to assess for home needs. (5) Weakness Current Visit: No Status: Acute Assessment and plan: Falls/safety precautions, up with assist, bed rest w/bedside commode w/assist. PT/OT consult - Subjective Interval history: Patient sitting up in bed trying to eat her breakfast. When discussed conversation with cardiology she became very tearful and then stated that she has lived a long life and is God's will. She is awaiting to talk to the palliative care team to determine her options. She denies any chest pain, shortness of breath, abdominal pain, fever, chills or changes in bowel or bladder. Emotional support offered - Constitutional Vitals: Temp Pulse Resp BP Pulse Ox 97.7 F 84 18 118/75 94 10/17/17 06:26 10/17/17 06:26 10/17/17 06:26 10/17/17 06:26 10/17/17 06:26 General appearance: Present: cooperative, mild distress (Anxiety r/t health), A& O X 3, pleasant, underweight, loss of weight, answers questions appropriately - Head Head exam: Present: atraumatic, normocephalic - Eye Eye exam: Present: PERRL, conjuntiva pink, sclera anicteric Pupils: Present: PERRL - Neck Neck exam general surgery: Present: supple, trachea midline. Absent: lymphadenopathy - Respiratory Respiratory exam: Present: CTAB. Absent: accessory muscle use, rales, rhonchi, wheezes - Cardiovascular Cardiovascular exam: Present: RRR, +S1, +S2. Absent: diastolic murmur, gallop, rubs Additional comments: murmur - GI/Abdominal GI/Abdominal exam: Present: normal bowel sounds, soft, no peritoneal signs. Absent: distended, tenderness - Extremities Exam Extremities exam: Present: warm, radial pulses palpable and symmetrical. Absent : calf tenderness, cyanotic, pedal edema - Neurological Exam Neurological exam: Present: oriented X3, no focal deficits. Absent: pronater drift, facial droop, speech deficit - Skin Skin exam: Present: dry, intact Internal Medicine: Result - Labs CBC & Chem 7: 10/17/17 01:14 10/17/17 01:14 Labs: Short CBC 10/17/17 Range/Units 01:14 WBC 5.7 (4.3-11.1) K/mcL Hgb 10.9 L (11.5-15.4) g/dL Hct 35.3 (35.3-44.9) % Plt Count 240 (140-400) K/mcL Neutrophils # 4.2 (1.6-8.9) K/mcL BMP 10/17/17 01:14 Sodium 142 Potassium 3.3 L Chloride 108 H Carbon Dioxide 24 BUN 22 Creatinine 0.62 Glucose 128 H Calcium 9.2 Cardiac Enzymes 10/16/17 10/17/17 10/17/17 Range/Units 19:41 01:14 07:50 Troponin I 0.03 0.11 H* 0.10 H* (< 0.04) ng/mL Liver Function 10/17/17 Range/Units 01:14 Total Bilirubin 1.8 H (0.3-1.0) mg/dL AST 43 H (13-39) Units/L ALT 22 (7-52) Units/L Alkaline Phosphatase 173 H (34-104) Units/L Albumin 3.7 (3.5-5.7) g/dL Urine 10/17/17 Range/Units 05:55 Urine Color Dark Yellow (Yellow) Urine Clarity Hazy A (Clear) Urine pH 5.5 (5.0-8.0) pH Units Ur Specific [place] 1.026 H (1.010-1.025) Urine Protein 30 H (Neg-Trace) mg/dL Urine Glucose (UA) Normal (Normal) mg/dL - ABG Interpretation ABG results: PT/INR, D-dimer PT 12.4 Seconds (9.4-12.1) H 10/16/17 12:52 Consult Discharge Plan - Plan Referrals: NONE,PCP [Primary Care Provider] -
--- NOTE | 2017-10-17 10:36 | Palliative - Consult Note ---
Date of Encounter: 10/17/17 Time of Encounter: 10:00 - Assessment and Plan (1) Goals of care, counseling/discussion Current Visit: Yes Status: Acute Assessment and plan: After discussion CODE STATUS changed from full code to DNR CCA, DNI. Later discussion with family they concur. As of care are to return back to [facility] with the patient is in an assisted-living situation however she would like to go back with hospice. We will arrange for hospice to sign her up at [facility]. (2) Elevated troponin Current Visit: Yes Status: Acute Assessment and plan: Her cardiology no further therapy except medical therapy. Patient will be going with hospice. (3) Aortic stenosis, severe Current Visit: No Status: Acute Assessment and plan: Per cardiology amount Gema has said no to TAVR. This is the patient's hospice diagnosis. She will be admitted to hospice after she returns from the [facility]. (4) Failure to thrive in adult Current Visit: No Status: Acute Assessment and plan: Continue to encourage oral intake. (5) Weakness Current Visit: No Status: Acute Assessment and plan: Patient is opted for follow-up with hospice care. This be arranged after she gets back home to [facility]. Patient is okay to discharge from a palliative standpoint and hospice will will sign her up after she gets back over to her home. Palliative-CN HPI - Data of Consult Patient: new to practice Requesting Physician: Marylu Reese CNP Primary Care Provider: PCP NONE - Consult Narrative Palliative Care/Comfort Measures: Palliative care History of present illness: Ms. Hollins is a 87 year old female Who was admitted from her sister living situation at [place] age a past history of coronary artery disease valvular heart disease IPO thyroidism a man with increasing shortness of breath dyspnea exertion and weakness which have been getting worse. Night use of home oxygen inhalers or nebulizers. 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 Had anxiety with regard to her health and decreased appetite, having some trouble with nausea not any fever chills chest pain palpitations headache changes in vision unusual bleeding abdominal pain diarrhea constipation no abdominal pain at all, no dizziness lightheadedness presyncope or syncope. The have congestive heart failure with a BNP of 5000 she was status post heart catheterization with 1 stent placed. He has a severely's eye and restricted aortic valve area of valve 0.6 cm she was evaluated at [facility] for T aVR and found not to be a candidate. Radiology concern was the patient had 6 months or less. She also has congestive for failure with left ventricular ejection fraction 45% used LV function and valvular heart disease as already noted. Also felt the patient had a non-STEMI. With recent heart catheterization. As the patient is not a candidate for any further treatment. Palliative care was salted regarding hospice eligibility. Talking with the patient she has severe shortness of breath with exertion. He is not truly short of breath at rest however her dyspnea is worsening. She has an extremely poor appetite. He oncology gives first less than 6 months, although the patient has no chest discomfort she is markedly impaired in her ability to get up and get around. 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 Patient does however limited [facility] which is an assisted living situation this may impact hospice eligibility. CC: Marylu Reese, PERSONAL LINES UNDERWRITER sob Past Med Surg Social Fam HX - Past Medical History Medical history: coronary artery disease, hyperlipidemia Psychiatric history: no psych history - Past Surgical History Surgical History: coronary bypass (CABG) ([facility] in 2000) - Social History Smoking Status: Never smoker Smokeless Tobacco Status: No Alcohol use: none Drug use: none - Family History Father Race: Family Member Ethnicity: Non- Living Status: Age at : 82 Cause of : HD Hx Family Cardiac Disorders: Yes (CT, CAD, HD) Mother Race: Family Member Ethnicity: Non- Living Status: Age at : 79 Cause of : DM complications Hx Family Endocrine Disorder: Yes (DM) Brother Race: Family Member Ethnicity: Non- Living Status: Age at : 86 Cause of : HD Hx Family Cardiac Disorders: Yes (HD, CAD, HTN) Sister Race: Family Member Ethnicity: Non- Living Status: Age at : 54 Cause of : Stroke complications Hx Family Cardiac Disorders: Yes (CT, CAD, Stroke) Medications and Allergies Levothyroxine Sodium [Levoxyl] 25 mcg PO DAILY 09/07/17 [History] Metoprolol XL (24 HR) Succ [Toprol Xl] 50 mg PO DAILY 09/07/17 [History] Venlafaxine XR (24 HR) [Effexor Xr] 37.5 mg PO DAILY 09/07/17 [History] Acetaminophen [Tylenol] 500 mg PO Q6HR PRN tablet 09/08/17 [Rx] Aspirin [Lo-Dose Aspirin EC] 81 mg PO DAILY 09/08/17 [History] Ticagrelor [Brilinta] 90 mg PO BID tablet 09/08/17 [Rx] Atorvastatin [Lipitor] 40 mg PO HS 10/16/17 [History] Buspirone HCl [Buspar] 10 mg PO TID PRN 10/16/17 [History] Dronabinol [Marinol] 2.5 mg PO BID 10/16/17 [History] Lutein 10 mg PO DAILY 10/16/17 [History] Nitroglycerin [Nitrostat] 0.4 mg SL Q5M PRN 10/16/17 [History] Ondansetron HCl [Zofran] 2 mg PO Q6H PRN 10/16/17 [History] Furosemide [Lasix] 20 mg PO DAILY #30 tablet 10/17/17 [Rx] 3 Allergy/AdvReac Type Severity Reaction Status Date / Time No Known Allergies Allergy Verified 09/04/17 10:04 - Constitutional Constitutional ROS PAL: decreased appetite, anorexia, no chills, no fever(s) - EENT Eyes: no loss of vision, no pain Ears: no ear discharge, no ear pain Ears, nose, mouth, throat: no facial pain, no hoarseness, no lip swelling, no mouth pain - Cardiovascular Cardiovascular ROS: dyspnea on exertion, no chest pain, no chest pain at rest, no chest pain with activity, no edema - Respiratory Respiratory: dyspnea, dyspnea on exertion, no cough, no hemoptysis, no pain on inspiration - Gastrointestinal Gastrointestinal: no constipation, no diarrhea, no nausea (It happened but is gone now), no vomiting - Genitourinary Palliative ROS female: no urinary frequency, no urinary hesitancy, no urinary incontinence - Musculoskeletal Musculoskeletal ROS IM: no back pain, no joint swelling - Integumentary ROS Integumentary: no skin pain, no skin ulcer, no sores - Neurological Neurological ROS: no confusion, no convulsions, no disequilibrium, no dizziness - Psychiatric Psychiatric general PM: depression, homicidal ideation, no difficulty concentrating, no suicidal ideation - Endocrine Endocrine IM: other Additional comments: thyroid Palliative Care-Exam - Constitutional Vitals: Temp Pulse Resp BP Pulse Ox 97.7 F 84 18 118/75 94 10/17/17 06:26 10/17/17 06:26 10/17/17 06:26 10/17/17 06:26 10/17/17 06:26 General appearance: Present: no acute distress - Head Head Exam: Present: atraumatic, normal inspection - Eye Eye exam: Present: normal appearance - Respiratory Respiratory exam: Present: CTAB - Cardiovascular Cardiovascular exam: Present: RRR - GI/Abdominal Exam GI/Abdominal exam: Present: normal bowel sounds, soft. Absent: tenderness - Extremities Exam Extremities exam: Present: normal inspection. Absent: pedal edema, tenderness - Neurological Exam Neurological exam: Present: alert, oriented X3 - Psychiatric Psychiatric exam: Present: normal affect, normal mood. Absent: agitated, anxious - Skin Skin exam: Present: dry, warm Internal Medicine - CN: Reslt - Labs CBC & Chem 7: 10/17/17 01:14 10/17/17 01:14 Labs: Short CBC 10/17/17 Range/Units 01:14 WBC 5.7 (4.3-11.1) K/mcL Hgb 10.9 L (11.5-15.4) g/dL Hct 35.3 (35.3-44.9) % Plt Count 240 (140-400) K/mcL Neutrophils # 4.2 (1.6-8.9) K/mcL BMP 10/17/17 01:14 Sodium 142 Potassium 3.3 L Chloride 108 H Carbon Dioxide 24 BUN 22 Creatinine 0.62 Glucose 128 H Calcium 9.2 Cardiac Enzymes 10/16/17 10/17/17 10/17/17 Range/Units 19:41 01:14 07:50 Troponin I 0.03 0.11 H* 0.10 H* (< 0.04) ng/mL Liver Function 10/17/17 Range/Units 01:14 Total Bilirubin 1.8 H (0.3-1.0) mg/dL AST 43 H (13-39) Units/L ALT 22 (7-52) Units/L Alkaline Phosphatase 173 H (34-104) Units/L Albumin 3.7 (3.5-5.7) g/dL Urine 10/17/17 Range/Units 05:55 Urine Color Dark Yellow (Yellow) Urine Clarity Hazy A (Clear) Urine pH 5.5 (5.0-8.0) pH Units Ur Specific Crane 1.026 H (1.010-1.025) Urine Protein 30 H (Neg-Trace) mg/dL Urine Glucose (UA) Normal (Normal) mg/dL - ABG Interpretation ABG results: PT/INR, D-dimer PT 12.4 Seconds (9.4-12.1) H 10/16/17 12:52 Consult Discharge Plan - Plan Referrals: Geo Tobias DO [Partnered Physician] - (Call Dr. Tobias office and reschedule appointment.) NONE,PCP [Primary Care Provider] - Palliative Quality Palliative Quality: Screen for Code Status: Yes, Screen for Goals of Care: Yes, Screen for Pain: Yes, If Pain Regimen Started, Initiate Bowel Regimen: Yes, Screen for Nausea/Vomitting: Yes
[2017-10-17 11:16] VITALS: BP 109/70
--- NOTE | 2017-10-17 13:34 | Discharge Summary ---
Date of Encounter: 10/17/17 Time of Encounter: 13:31 - Discharge Diagnosis (1) Aortic stenosis, severe Priority: Primary Status: Acute Comments: Per cardiology report:Not candidate for TAVR per referral 2/2 fraility. Patient declines 3rd opinion, which is reasonable. Discussed natural course of aortic stenosis and that no medical therapy is available to directly treat , only to address symptoms. At this point, recommend making MPOA/living will, changing to DNR (extremely poor prognosis if ACLS for cardiac arrest). Palliative care and licensed clinical social worker saw and to go on Hospice at [facility]. (2) CHF (congestive heart failure) Priority: Primary Status: Acute Comments: New onset of CHF. BNP 5000 on admission. Pt. and family deny previous hx of CHF. Pt. reports SOB/Dyspnea over the past week which has worsened. Hx of CAD w/ heart catheterization and stent placement x1 in late August 2017. Pt. denies use of diuretic. IVP lasix 20 mg daily ordered. Partida catheter ordered d/t pts. urinary retention and incontinence. Monitor I&O and daily weight. Continuous cardiac telemetry. Supplemental O2 w/titration and SpO2 monitoring. Echocardiogram done in 08/27. Cardiology consulted and appreciate information. Pt. is high risk for further morbidity, cardiac event, and respiratory distress/ failure d/t current sx, new onset of CHF, previous heart cath w/stent x1 <1 month ago, hx, and risk factors. 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 Previously elevated troponin in 08/27 of 5.02 when heart catheterization and stent x1 placed. Pt. denies chest pain. Continue heparin drip. Continuous cardiac telemetry. Cardiology following and appreciate recommendations EKG showed sinus rhythm with nonspecific ST and T-wave abnormality. Previous Echo in 08/27. Continue aspirin therapy and metoptolol. Hold Brilinta d/t current heparin drip. Continue to monitor Patient closely for signs of cardiac/respiratory distress. Per cadiology note: "severe grayling three vessel coronary artery disease. Patient had PTCA in the mid RCA with improvement in heavily calcified stenosis S/P CABG 1 of 2 patent bypass grafts. There are ipsilateral collaterals noted in the RCA and the LAD fills via the sequential Y-graft of the 1st OM/1st diagonal. 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 Pt. reports reduced appetite and intake since last hospitalization in late August. Family reports weight loss. Cardiac diet. Nutrition consult ordered for PO supplementation. Monitor I&O and daily weight. SW consult to assess for home needs. (5) Weakness Priority: Secondary Status: Chronic Comments: Falls/safety precautions, up with assist, bed rest w/bedside commode w/assist. PT/OT consult - Discharge Medications Prescriptions: Furosemide [Lasix] 20 mg PO DAILY #30 tablet Home Medications: Levothyroxine Sodium [Levoxyl] 25 mcg PO DAILY 09/07/17 [History] Metoprolol XL (24 HR) Succ [Toprol Xl] 50 mg PO DAILY 09/07/17 [History] Venlafaxine XR (24 HR) [Effexor Xr] 37.5 mg PO DAILY 09/07/17 [History] Acetaminophen [Tylenol] 500 mg PO Q6HR PRN tablet 09/08/17 [Rx] Aspirin [Lo-Dose Aspirin EC] 81 mg PO DAILY 09/08/17 [History] Ticagrelor [Brilinta] 90 mg PO BID tablet 09/08/17 [Rx] Atorvastatin [Lipitor] 40 mg PO HS 10/16/17 [History] Buspirone HCl [Buspar] 10 mg PO TID PRN 10/16/17 [History] Dronabinol [Marinol] 2.5 mg PO BID 10/16/17 [History] Lutein 10 mg PO DAILY 10/16/17 [History] Nitroglycerin [Nitrostat] 0.4 mg SL Q5M PRN 10/16/17 [History] Ondansetron HCl [Zofran] 2 mg PO Q6H PRN 10/16/17 [History] Furosemide [Lasix] 20 mg PO DAILY #30 tablet 10/17/17 [Rx] Allergies/Adverse Reactions: 3 Allergy/AdvReac Type Severity Reaction Status Date / Time No Known Allergies Allergy Verified 09/04/17 10:04 Date of admission: 10/16/17 14:43 Primary care physician: PCP NONE Consults: 10/16/17 15:26 Consult to Palliative Care [CONS] Routine Comment: Consulting Provider: Palliative Care Marisol Reason for Consult: Patient with severe . Poor prognosis likely 6 months. Not a candidate for replacement per [facility]. Goals of care. Consideration of hospice. Call Completed: Yes Consult to Buzzsaw Operator Helper [CONS] Routine Reason for SW Consult: Establish POA. Discharging clinician: Taya Rios Anticipated date of discharge: 10/17/17 - Patient Status Disposition: Hospice - Medical Facility Condition: Fair Functional capacity at discharge: independent ambulation Overall status at discharge: patient is not back to baseline - Discharge Instructions Follow Up With: Geo Tobias DO [Partnered Physician] - (Call Dr. Tobias office and reschedule appointment.) NONE,PCP [Primary Care Provider] - - Diet and Activity Activity: resume usual activities as tolerated Diet: advance to your usual diet Interval History: Patient tearful today. She has no complaints of chest pain or shortness of breath. She is very weak and and has no appetite. She came tearful during the evaluation we discussed palliative care and her plans.. Hospital course: Ms. Hollins is a 87 year old female who presented with a new onset of CHF, elevated troponins failure to thrive weakness and severe aortic stenosis, per cardiology she is not a candidate for TAVR and she declines a third opinion. Cardiology discussed the natural course of aortic stenosis and that no medical therapy is available to directly treat ALS only to address symptoms. Palliative care was recommended and the patient is now DNR and will be going to hospice care at her facility. Cecil So assessment and plan for further information on the stay - Time Spent with Patient Total time spent providing and/or coordinating discharge services: - Constitutional Vitals: Temp Pulse Resp BP Pulse Ox 97.6 F 76 16 109/70 98 10/17/17 11:15 10/17/17 11:15 10/17/17 11:15 10/17/17 11:15 10/17/17 11:15 General appearance: Present: cooperative, mild distress (Anxiety r/t health), A& O X 3, pleasant, underweight, loss of weight, answers questions appropriately - Head Head exam: Present: atraumatic, normocephalic - Eye Eye exam: Present: PERRL, conjuntiva pink, sclera anicteric Pupils: Present: PERRL - Neck Neck exam general surgery: Present: supple, trachea midline. Absent: lymphadenopathy - Respiratory Respiratory exam: Present: CTAB. Absent: accessory muscle use, rales, rhonchi, wheezes - Cardiovascular Cardiovascular exam: Present: RRR, +S1, +S2. Absent: diastolic murmur, gallop, rubs, systolic murmur Additional comments: mumur - GI/Abdominal GI/Abdominal exam: Present: normal bowel sounds, soft, no peritoneal signs. Absent: distended, tenderness - Extremities Exam Extremities exam: Present: warm, radial pulses palpable and symmetrical. Absent : calf tenderness, cyanotic, pedal edema - Neurological Exam Neurological exam: Present: oriented X3, no focal deficits. Absent: pronater drift, facial droop, speech deficit - Skin Skin exam: Present: dry, intact, warm
--- NOTE | 2017-10-17 13:53 | Physician Discharge Referral ---
Home Health/Hosp Referral Info Transfer to: Hospice Attending Provider: chaim aarna - Diagnosis (1) Aortic stenosis, severe Priority: Primary Status: Acute (2) CHF (congestive heart failure) Priority: Primary Status: Acute (3) Elevated troponin Priority: Primary Status: Acute (4) Failure to thrive in adult Priority: Secondary Status: Acute (5) Weakness Priority: Secondary Status: Acute - Respiratory Orders Smoking Cessation: Smoking cessation has been advised. For more information, call the [place] Tobacco Quit Line at 1-713-YHJQ-NOW. - Diet/Nutrition Diet/Nutrition Orders: Regular - Activity Activity Orders: Up ad ruma - Services Needed Following services are medically necessary services: Nursing - Transfer Medications Prescriptions: Furosemide [Lasix] 20 mg PO DAILY #30 tablet Home Medications: Levothyroxine Sodium [Levoxyl] 25 mcg PO DAILY 09/07/17 [History] Metoprolol XL (24 HR) Succ [Toprol Xl] 50 mg PO DAILY 09/07/17 [History] Venlafaxine XR (24 HR) [Effexor Xr] 37.5 mg PO DAILY 09/07/17 [History] Acetaminophen [Tylenol] 500 mg PO Q6HR PRN tablet 09/08/17 [Rx] Aspirin [Lo-Dose Aspirin EC] 81 mg PO DAILY 09/08/17 [History] Ticagrelor [Brilinta] 90 mg PO BID tablet 09/08/17 [Rx] Atorvastatin [Lipitor] 40 mg PO HS 10/16/17 [History] Buspirone HCl [Buspar] 10 mg PO TID PRN 10/16/17 [History] Dronabinol [Marinol] 2.5 mg PO BID 10/16/17 [History] Lutein 10 mg PO DAILY 10/16/17 [History] Nitroglycerin [Nitrostat] 0.4 mg SL Q5M PRN 10/16/17 [History] Ondansetron HCl [Zofran] 2 mg PO Q6H PRN 10/16/17 [History] Furosemide [Lasix] 20 mg PO DAILY #30 tablet 10/17/17 [Rx] Allergies/Adverse Reactions: 3 Allergy/AdvReac Type Severity Reaction Status Date / Time No Known Allergies Allergy Verified 09/04/17 10:04 Certification: Further, I certify that my clinical findings support that this patient is homebound (i.e. absences from home require considerable and taxing effort and are for medical reasons or jain services or infrequently or short duration when for other reasons) because: Homebound Reason: Severity of cardiac or pulmonary status limits activity tolerance Attestation: My signature below is to certify that this patient is under my care and that I, or nurse practitioner, or a physician's lpn or medical assistant working with me, has a face-to -face encounter with this patient.
== END 2017-10-17 16:50 | disposition hospice, home (50) | DRG 306 ==
LOC: EMEROO 10:30 → 3BNU 10:30
PROVIDERS: ADMIT Registered Nurse; ATTEND Registered Nurse